=== PATIENT | male | born 1975 | race Caucasian/White ===

== ENCOUNTER 2018-08-23 18:35 | Inpatient (IN) | payer MEDICAID, OTHER ==
[~2018-08-23] VITALS: Ht 182.9 cm; Wt 87.5 kg
--- NOTE | 2018-08-23 18:40 | NUR ---
PT BIB ALS TO ER BED 2
[2018-08-23 18:47] VITALS: BP 117/85
[2018-08-23] MEDS ORDERED: ASPIRIN 325 MG TAB PO ONE (19:20)
[2018-08-23] MEDS ORDERED: LORazepam 1 MG TAB PO ONE (19:20)
[2018-08-23] MEDS ORDERED: NITROGLYCERIN 0.4 MG TAB SL ONE (19:20)
--- NOTE | 2018-08-23 19:29 | NUR ---
PT BIBA C/O SOB AND EXTREME FATIGUE. PT ATTEMPTED TO WALK TO HOSPITAL FOR BLE EDEMA AND PAIN, BUT BECAME FATIGUED AND SOB AND CALLED AMBULANCE. O2 SAT 100% ON 2L OXYGEN, NASAL CANNULA, RR EVEN, NON-LABORED, BREATH SOUDSS CLEAR. RECENT DIAGNOSES OF CHF. PT ALSO C/O OF RIGHT-SIDED PRESSURE HEADACHE RADIATES FROM RIGHT EYE TO RIGHT EAR; FREQUENCY AND URGENCY OF URIANATION. DENIES N/V/D; AAOX4; LUNGS CLEAR BL; HR EVEN AND REGULAR; PT DENIES ANY FEVER, CP, OR COUGH AT THIS TIME; PATIENT STATES HEADACHE OF 8/10 AT THIS TIME; VSS; PATIENT POSITIONED FOR COMFORT; HOB ELEVATED; BEDRAILS UP X2; BED DOWN. ER MD MADE AWARE OF PT STATUS. BROTHER IN LAW AT BEDSIDE. EDEMA +1 AND WARMNESS ON BOTH FEET NOTICED.
--- NOTE | 2018-08-23 19:29 | NUR ---
Note undone in EDM - 08/23/18 at 1931 by ESTELA PT BIBA C/O SOB AND EXTREME FATIGUE. PT ATTEMPTED TO WALK TO HOSPITAL FOR BLE EDEMA AND PAIN, BUT BECAME FATIGUED AND SOB AND CALLED AMBULANCE. O2 SAT 100% ON 2L OXYGEN, NASAL CANNULA, RR EVEN, NON-LABORED, BREATH SOUDSS CLEAR. RECENT DIAGNOSES OF CHF. PT ALSO C/O OF RIGHT-SIDED PRESSURE HEADACHE RADIATES FROM RIGHT EYE TO RIGHT EAR. DENIES N/V/D; AAOX4; LUNGS CLEAR BL; HR EVEN AND REGULAR; PT DENIES ANY FEVER, CP, OR COUGH AT THIS TIME; PATIENT STATES HEADACHE OF 8/10 AT THIS TIME; VSS; PATIENT POSITIONED FOR COMFORT; HOB ELEVATED; BEDRAILS UP X2; BED DOWN. ER MD MADE AWARE OF PT STATUS. BROTHER IN LAW AT BEDSIDE.
--- NOTE | 2018-08-23 19:29 | NUR ---
Note undone in EDM - 08/23/18 at 1956 by ESTELA PT BIBA C/O SOB AND EXTREME FATIGUE. PT ATTEMPTED TO WALK TO HOSPITAL FOR BLE EDEMA AND PAIN, BUT BECAME FATIGUED AND SOB AND CALLED AMBULANCE. O2 SAT 100% ON 2L OXYGEN, NASAL CANNULA, RR EVEN, NON-LABORED, BREATH SOUDSS CLEAR. RECENT DIAGNOSES OF CHF. PT ALSO C/O OF RIGHT-SIDED PRESSURE HEADACHE RADIATES FROM RIGHT EYE TO RIGHT EAR; FREQUENCY AND URGENCY OF URIANATION. DENIES N/V/D; AAOX4; LUNGS CLEAR BL; HR EVEN AND REGULAR; PT DENIES ANY FEVER, CP, OR COUGH AT THIS TIME; PATIENT STATES HEADACHE OF 8/10 AT THIS TIME; VSS; PATIENT POSITIONED FOR COMFORT; HOB ELEVATED; BEDRAILS UP X2; BED DOWN. ER MD MADE AWARE OF PT STATUS. BROTHER IN LAW AT BEDSIDE.
[2018-08-23 19:40] LABS: BASOPHILS # (AUTO) 0.1 K/uL (0.00-0.22); BASOPHILS % (AUTO) 1.4 % (0.0-2.0); EOSINOPHILS # (AUTO) 0.1 K/uL (0-0.4); EOSINOPHILS % (AUTO) 1.1 % (0.0-4.0); HEMATOCRIT 33.9 % (36-52); HEMOGLOBIN 10.5 g/dL (12.0-18.0); LYMPHOCYTES # (AUTO) 2.4 K/uL (2.0-11.5); LYMPHOCYTES % (AUTO) 25.5 % (20.5-51.1); MEAN CORPUSCULAR HEMOGLOBIN 22 pg (27-31); MEAN CORPUSCULAR HGB CONC 31 g/dL (33-37); MEAN CORPUSCULAR VOLUME 69.4 fL (80-94); MONOCYTES # (AUTO) 0.8 K/uL (0.8-1.0); NEUTROPHILS # (AUTO) 5.8 K/uL (1.8-7.7); PLATELET COUNT (AUTO) 261 K/uL (140-450); RED BLOOD CELL COUNT(AUTO) 4.89 MIL/uL (4.20-6.10); RED CELL DISTRIBUTION WIDTH 18.6 % (11.6-13.7); WHITE BLOOD COUNT (AUTO) 9.3 K/uL (4.8-10.8)
[2018-08-23 19:57] LABS: ANION GAP 16.2 (8-16); CARBON DIOXIDE 20.6 mmol/L (21-32); CREATININE 1.8 mg/dL (0.7-1.3); POTASSIUM 4.8 mmol/L (3.5-5.1); TOTAL BILIRUBIN 0.8 mg/dL (0.0-1.0)
--- NOTE | 2018-08-23 20:00 | NUR ---
EKG PERFORMED AT BEDSIDE
[2018-08-23] MEDS ORDERED: VAS2.5 PO (20:21)
[2018-08-23] MEDS ORDERED: METO25TA PO (20:21)
[2018-08-23 20:29] LABS: BARBITURATE, URINE NEG. ng/ml (NEG <=200); BENZODIAZEPINE, URINE NEG. ng/mL (NEG <=200); CANNABINOID, URINE NEG. ng/mL (NEG <=50); COCAINE, URINE NEG. ng/mL (NEG <=300); OPIATE, URINE NEG. ng/mL (NEG <=2000); PHENCYCLIDINE SCREEN,URINE NEG. ng/mL (NEG <=25)
[2018-08-23 20:36] LABS: CREATINE KINASE MB 0.8 ng/mL (0-3.6)
--- NOTE | 2018-08-23 21:30 | NUR ---
ASSUMED CARE OF PT, PT ACTING APPROPRIATLY; BREATHING EQUAL AND UNLABORED; SPEAKING IN CLEAR AND COMPLETE SENTENCES. POSITIONED FOR COMFORT.
[2018-08-23] MEDS ORDERED: ONDANSETRON 4 MG/2 ML VIAL IVP PRN (21:35)
[2018-08-23] MEDS ORDERED: HYDROcodone/APAP 7.5/325 MG 1 TAB PO PRN (21:35)
[2018-08-23 22:19] LABS: APPEARANCE,URINE CLEAR (CLEAR); BILIRUBIN,URINE NEGATIVE (NEGATIVE); BLOOD, URINE NEGATIVE (NEGATIVE); COLOR,URINE YELLOW (YELLOW); LEUKOCYTE ESTERASE ,URINE NEGATIVE (NEGATIVE); NITRITE, URINE NEGATIVE (NEGATIVE); PH,URINE 5.5 (5.0-9.0); UGLUCOSE NEGATIVE (NEGATIVE)
[2018-08-23 22:20] LABS: PROTHROMBIN TIME 11.4 secs (10.8-13.4)
--- NOTE | 2018-08-23 22:25 | NUR ---
Patient will be admitted to care of Dr. Rodas. Admited to Tele. Patient went to room 120-B via gurney by RN and EMT; VSS, patient acting appropriatly. Belongings list completed. Report to well.
[2018-08-23 22:30] VITALS: BP 122/84
--- NOTE | 2018-08-23 22:30 | NUR ---
RECEIVED PATIENT FROM ER NURSE, MANDI. PT CAME WITH JEFFREY AND AMBULATED TO [facility] BED. AAOX4, DX CHEST PAIN. NO S/S OF SOB ON 2LPM O2 VIA NC. IV SITE ON R AC 18G, DATE, TIME, AND INITIAL NOTED. PATENT, INTACT, AND ASYMPTOMATIC. STANDARD PRECAUTION IN PLACED. ORIENT ROOM TO PATIENT. POC REVIEWED AND DISCUSSED. BED IN LOW POSITION, CALL LIGHT WITHIN REACH.
[2018-08-23 22:35] LABS: FREE T4 (FREE THYROXINE) 1.26 ng/dL (0.76-1.46); MAGNESIUM 1.7 mg/dL (1.8-2.4); PHOSPHORUS 4.8 mg/dL (2.5-4.9); THYROID STIMULATING HORMONE 0.87 uIU/mL (0.34-3.74)
[2018-08-23] MEDS ORDERED: METOPROLOL 25 MG TAB PO ONE (23:05)
[2018-08-23] MEDS: ZOLPIDEM 5 MG TAB PO PRN (23:13)
--- NOTE | 2018-08-23 23:13 | NUR ---
GIVEN METOPROLOL DR. ORDERED. PT C/O INSOMNIA. GIVEN AMBIEN DR. ORDERED. PT TOLERATED WELL.
[2018-08-23] MEDS ORDERED: MAGNESIUM OXIDE 400 MG TAB PO ONE (23:15)
--- NOTE | 2018-08-23 23:30 | NUR ---
STOOL WAS COLLECTED FOR OCCULT BLOOD TEST AND SENT TO LAB.
[2018-08-24] VITALS: BP 118/88
--- NOTE | 2018-08-24 00:02 | NUR ---
GIVEN MAG-OX AND HEPARIN ORDERED. PT TOLERATED WELL. VS CHECK, WITHIN NORMAL RANGE. WILL CONTINUE TO MONITOR.
--- NOTE | 2018-08-24 02:25 | NUR ---
PT SLEEPING IN BED. BREATHING EVEN AND UNLABORED. BED IN LOW POSITION. CALL LIGHT WITHIN REACH.
--- NOTE | 2018-08-24 03:55 | NUR ---
VS CHECKED. WITHIN NORMAL RANGE. NO SOB NOTED. BREATHING EVEN AND UNLABORED. WILL CONTINUE TO MONITOR.
[2018-08-24 04:00] VITALS: BP 113/86
--- NOTE | 2018-08-24 05:48 | NUR ---
ROUND MADE, PT TOOK NC AND BREATHING LABORED. PUT NC ON PT BACK AND MONITOR O2 SAT AND RESP RATE AND DEPTH, PT RESP EVEN AND UNLABORED AND 100% O2 SATE WITH 2LPM O2 VIA NC. WILL CONTINUE TO MONITOR.
--- NOTE | 2018-08-24 07:29 | NUR ---
ENDORSED PT TO DAY SHIFT NURSEGORAN FOR CONTINUOUS CARE. PT IN STABLE CONDITION.
--- NOTE | 2018-08-24 07:30 | NUR ---
RECEIVED REPORT FROM PRESCHOOL PARAPROFESSIONAL NURSE SHAWN FOR CONTINUITY OF CARE. RESPIRATIONS EVEN AND UNLABORED. IV INTACT AND PATENT. SAFETY MEASURES IN PLACE. BED IN LOW POSITION. CALL LIGHT AT BEDSIDE. WILL CONTINUE TO MONITOR.
[2018-08-24 07:31] LABS: CREATININE 1.6 mg/dL (0.7-1.3)
[2018-08-24 07:45] LABS: CHOL/HDL RATIO 3.5 (1-4.5); MAGNESIUM 1.9 mg/dL (1.8-2.4); PHOSPHORUS 4.6 mg/dL (2.5-4.9); POTASSIUM 4.8 mmol/L (3.5-5.1)
[2018-08-24 07:46] LABS: ANION GAP 17.9 (8-16); CARBON DIOXIDE 17.9 mmol/L (21-32)
[2018-08-24 08:00] VITALS: BP 125/92
[2018-08-24] MEDS ORDERED: ENALAPRIL 2.5 MG TAB PO SCH (09:00)
--- NOTE | 2018-08-24 09:16 | NUR ---
PATIENT HAS BEEN SCREENED AND CATEGORIZED MODERATE NUTRITION RISK. PATIENT WILL BE SEEN WITHIN 3-5 DAYS OF ADMISSION. 08/26/18JANINE REMY RD
[2018-08-24] MEDS: METOPROLOL 25 MG TAB PO SCH ×2 (09:44→20:06)
[2018-08-24] MEDS: DOCUSATE SODIUM 100 MG GELCAP PO SCH ×2 (09:44→20:06)
[2018-08-24] MEDS: MAGNESIUM OXIDE 400 MG TAB PO SCH (09:45)
--- NOTE | 2018-08-24 09:52 | NUR ---
MELANI ALEMAN LOCAL GOVERNMENT LEGISLATOR AT BEDSIDE AT THIS TIME. PT IN STABLE CONDITION. WILL CONTINUE TO MONITOR.
[2018-08-24] MEDS: ECOTRIN 81 MG TABEC PO SCH (09:59)
[2018-08-24 10:40] LABS: BASOPHILS # (AUTO) 0.1 K/uL (0.00-0.22); BASOPHILS % (AUTO) 1.3 % (0.0-2.0); EOSINOPHILS # (AUTO) 0.1 K/uL (0-0.4); EOSINOPHILS % (AUTO) 0.6 % (0.0-4.0); HEMATOCRIT 35.9 % (36-52); HEMOGLOBIN 11.2 g/dL (12.0-18.0); LYMPHOCYTES # (AUTO) 2.7 K/uL (2.0-11.5); LYMPHOCYTES % (AUTO) 27.6 % (20.5-51.1); MEAN CORPUSCULAR HEMOGLOBIN 22 pg (27-31); MEAN CORPUSCULAR HGB CONC 31 g/dL (33-37); MEAN CORPUSCULAR VOLUME 69.2 fL (80-94); MONOCYTES # (AUTO) 0.8 K/uL (0.8-1.0); MONOCYTES % (AUTO) 8.2 % (1.7-9.3); NEUTROPHILS # (AUTO) 6.1 K/uL (1.8-7.7); NEUTROPHILS % (AUTO) 62.3 % (42.2-75.2); PLATELET COUNT (AUTO) 284 K/uL (140-450); RED BLOOD CELL COUNT(AUTO) 5.18 MIL/uL (4.20-6.10); RED CELL DISTRIBUTION WIDTH 18.2 % (11.6-13.7); WHITE BLOOD COUNT (AUTO) 9.9 K/uL (4.8-10.8)
[2018-08-24] MEDS ORDERED: FUROSEMIDE 20 MG/2 ML VIAL IVP SCH (11:20)
--- NOTE | 2018-08-24 11:30 | NUR ---
PT LYING I BED SLEEPING AT THIS TIME. RESPIRATIONS EVEN AND UNLABORED. CALL LIGHT AT BEDSIDE. BED IN LOW POSITION. WILL CONTINUE TO MONITOR.
[2018-08-24 12:00] VITALS: BP 122/87
[2018-08-24] MEDS: NACL 0.9% 1,000 ML IV SCH (12:37)
--- NOTE | 2018-08-24 13:52 | NUR ---
PT LYING IN BED SLEEP AT THIS TIME. RESPIRATIONS EVEN AND UNLABORED. CALL LIGHT AT BEDSIDE. BED IN LOW POSITION. WILL CONTINUE TO MONITOR.
[2018-08-24] MEDS ORDERED: MIDAZOLAM 2 MG/2 ML VIAL ONE (14:15)
[2018-08-24] MEDS ORDERED: fentaNYL 0.05 MG/ML VIAL ONE (14:15)
[2018-08-24] MEDS ORDERED: diphenhydrAMINE 50 MG/ML VIAL ONE (14:15)
[2018-08-24 16:00] VITALS: BP 118/84
--- NOTE | 2018-08-24 16:01 | NUR ---
WALKING AROUND UNIT IN STABLE CONDITION. WILL CONTINUE TO MONITOR.
--- NOTE | 2018-08-24 19:10 | NUR ---
GAVE REPORT TO COLLECT ON DELIVERY CLERK NURSE FOR CONTINUITY OF CARE. PT IN STABLE CONDITION.
--- NOTE | 2018-08-24 19:11 | NUR ---
RECEIVED PATIENT FROM DAY SHIFT NURSE. AAOX4, NO SOB NOTED ON 2LPM O2 VIA NC. IV SITE ON R AC 18G, PATENT, INTACT, AND ASYMPTOMATIC. STANDARD PRECAUTION IN PLACED. POC REVIEWED AND DISCUSSED. BED IN LOW POSITION, CALL LIGHT WITHIN REACH. WILL CONTINUE TO MONITOR.
[2018-08-24 20:00] VITALS: BP 113/82
--- NOTE | 2018-08-24 20:06 | NUR ---
GIVEN SCHEDULE MEDS ORDERED. PT TOLERATED WELL. WILL CONTINUE TO MONITOR.
--- NOTE | 2018-08-24 20:25 | NUR ---
PT C/O SOB. REPORT TO RESIDENT BREATHING TREATMENT ORDER RECEIVED. INFORM RT.
[2018-08-24] MEDS: ALBUTEROL SULFATE/IPRATROPIU 3 ML SOL IH PRN (20:38)
[2018-08-24] MEDS: ACETAMINOPHEN 325 MG TAB PO PRN (20:49)
--- NOTE | 2018-08-24 20:49 | NUR ---
PT C/O INSOMNIA AND HEADACHE, 05/23. GIVEN AMBIEN AND TYLENOL ORDERED. PT TOLERATED WELL. WILL CONTINUE TO MONITOR.
[2018-08-24] MEDS: ZOLPIDEM 5 MG TAB PO PRN (20:50)
[2018-08-25] VITALS: BP 110/80
--- NOTE | 2018-08-25 00:25 | NUR ---
PT SLEEPING IN BED COMFORTABLY. NO ACUTE DISTRESS NOTED. BED IN LOW POSITION. CALL LIGHT WITHIN REACH.
--- NOTE | 2018-08-25 02:05 | NUR ---
PT SLEEPING IN BED. NO S/S OF SOB OR RESP DISTRESS. WILL CONTINUE TO MONITOR.
[2018-08-25 04:00] VITALS: BP 127/96
--- NOTE | 2018-08-25 04:15 | NUR ---
PT C/O SOB. INFORM RT TO GET BREATHING TREATMENT.
[2018-08-25] MEDS: ALBUTEROL SULFATE/IPRATROPIU 3 ML SOL IH PRN ×3 (04:21→20:50)
--- NOTE | 2018-08-25 07:01 | NUR ---
ENDORSED PT TO DAY SHIFT NURSE. PT IN STABLE CONDITION.
--- NOTE | 2018-08-25 07:22 | NUR ---
RECEIVED PATIENT FROM WATCH ASSEMBLER NURSE SHAWN AT PT BEDSIDE. PT IS AAOX4, NO SOB NOTED ON 2LPM O2 VIA NC. IV SITE ON R AC 18G, PATENT, INTACT, AND ASYMPTOMATIC. STANDARD PRECAUTION IN PLACED. SKIN IS WARM AND DRY TO TOUCH. SKIN INTACT. +1 PITTING EDEMA NOTED ON BLE. DISCUSSED POC WITH PT AND PT VERBALIZED UNDERSTANDING. BED IN LOW POSITION, CALL LIGHT WITHIN REACH. WILL ROUND FREQUENTLY ON PT.
[2018-08-25 07:57] LABS: BASOPHILS # (AUTO) 0.1 K/uL (0.00-0.22); BASOPHILS % (AUTO) 1.3 % (0.0-2.0); EOSINOPHILS # (AUTO) 0.1 K/uL (0-0.4); EOSINOPHILS % (AUTO) 0.9 % (0.0-4.0); HEMATOCRIT 34.9 % (36-52); LYMPHOCYTES # (AUTO) 2.6 K/uL (2.0-11.5); LYMPHOCYTES % (AUTO) 26.9 % (20.5-51.1); MEAN CORPUSCULAR HEMOGLOBIN 22 pg (27-31); MEAN CORPUSCULAR HGB CONC 32 g/dL (33-37); MEAN CORPUSCULAR VOLUME 68.6 fL (80-94); MONOCYTES # (AUTO) 0.8 K/uL (0.8-1.0); MONOCYTES % (AUTO) 7.9 % (1.7-9.3); NEUTROPHILS # (AUTO) 6.1 K/uL (1.8-7.7); PLATELET COUNT (AUTO) 251 K/uL (140-450); RED BLOOD CELL COUNT(AUTO) 5.08 MIL/uL (4.20-6.10); RED CELL DISTRIBUTION WIDTH 17.7 % (11.6-13.7); WHITE BLOOD COUNT (AUTO) 9.7 K/uL (4.8-10.8)
[2018-08-25 08:00] VITALS: BP 122/99
[2018-08-25 08:47] LABS: ANION GAP 17.7 (8-16); CARBON DIOXIDE 19.6 mmol/L (21-32); CREATININE 1.5 mg/dL (0.7-1.3); POTASSIUM 4.3 mmol/L (3.5-5.1)
[2018-08-25 08:58] LABS: MAGNESIUM 1.9 mg/dL (1.8-2.4)
[2018-08-25] MEDS ORDERED: FUROSEMIDE 20 MG/2 ML VIAL IVP SCH (09:00)
[2018-08-25 09:14] LABS: TRANSFERRIN 326 mg/dL (200-370)
--- NOTE | 2018-08-25 09:46 | NUR ---
ADMINISTERED MORNING MEDS TO PT. PT TOLERATED THEM WELL. PT DENIES PAIN OR SOB AT THIS TIME. WILL CONTINUE TO ROUND FREQUENTLY ON PT.
[2018-08-25] MEDS: DOCUSATE SODIUM 100 MG GELCAP PO SCH ×2 (09:54→21:00)
[2018-08-25] MEDS: ECOTRIN 81 MG TABEC PO SCH (09:54)
[2018-08-25] MEDS: LISINOPRIL 5 MG TAB PO SCH (09:54)
[2018-08-25] MEDS: METOPROLOL 25 MG TAB PO SCH ×2 (09:55→21:01)
[2018-08-25] MEDS: MAGNESIUM OXIDE 400 MG TAB PO SCH (09:55)
[2018-08-25] MEDS: NACL 0.9% 1,000 ML IV SCH (11:20)
[2018-08-25] MEDS ORDERED: ESCITALOPRAM 20 MG TAB PO SCH (11:30)
--- NOTE | 2018-08-25 11:36 | NUR ---
PT RESTING IN BED WITH SISTER AND [id number] AT BEDSIDE. PER PT, FAMILY IS ALLOWED TO CALL FOR PT UPDATES. SISTER IS CORY GOMES: AND BROTHER IN LAW(SISTER'S SPOUSE) IS JOSEPH MERLENE: .
--- NOTE | 2018-08-25 11:37 | NUR ---
SPOKE WITH PT LAILA LI. ASKED HIM FOR INFORMATION TO PT[facility]S [facility]. PER JEN, HE WILL GET ME THE INFORMATION AND WILL CALL ME BACK. Addendum: 08/25/18 at 1542 by Kenia Encinas RN WRONG PT
[2018-08-25 12:00] VITALS: BP 137/88
--- NOTE | 2018-08-25 13:24 | NUR ---
PT RESTING IN BED. ALL NEEDS CURRENTLY MET. WILL CONTINUE TO ROUND FREQUENTLY ON PT. BED IN LOW POSITION, CALL LIGHT WITHIN REACH.
--- NOTE | 2018-08-25 15:54 | NUR ---
PT ASLEEP IN BED. NO SIGNS OF PAIN OR DISTRESS. WILL CONTINUE TO ROUND FREQUENTLY ON PT. BED IN LOW POSITION, CALL LIGHT WITHIN REACH.
[2018-08-25 16:00] VITALS: BP 118/86
--- NOTE | 2018-08-25 18:07 | NUR ---
PT ASLEEP IN BED. NO SIGNS OF PAIN OR DISTRESS, WILL CONTINUE TO ROUND FREQUENTLY. BED IN LOW POSITION, CALL LIGHT WITHIN REACH.
--- NOTE | 2018-08-25 19:34 | NUR ---
ENDORSED PT TO HORSEBACK RIDING INSTRUCTOR FOR CONTINUITY OF CARE. PT IN STABLE CONDITION AT THIS TIME.
--- NOTE | 2018-08-25 19:35 | NUR ---
RECEIVED PATIENT FROM AM SHIFT NURSE. PT IS AAOX4, NO RESPIRATORY DISTRESS NOTED.W/ IV SITE ON R HAND G 22 PATENT, INTACT, AND ASYMPTOMATIC . SKIN IS WARM AND DRY TO TOUCH. SKIN INTACT. +1 PITTING EDEMA NOTED ON BLE. DISCUSSED POC . BED IN LOW POSITION, CALL LIGHT WITHIN REACH. WILL ROUND FREQUENTLY ON PT.
[2018-08-25 20:00] VITALS: BP 111/74
--- NOTE | 2018-08-25 20:40 | NUR ---
C/O SOB INFORMED RT. PT BREATHING EVEN, AND NOT IN DISTRESS, O2 SAT 95%
--- NOTE | 2018-08-25 20:59 | NUR ---
RECEIVED PATIENT ON ROOM AIR, PULSE OX SAT 96%. PATIENT COMPLAINS OF FEELING SHORT OF BREATH, REQUESTING BREATHING TREATMENT. PRN BREATHING TREATMENT ADMINISTERED. TOLERATED TX WELL, NO ADVERSE SIDE EFFECTS. NO ACUTE DISTRESS NOTED AT THIS TIME. PATIENT STATES "TO BE FEELING BETTER". WILL CONTINUE TO MONITOR.
[2018-08-25] MEDS: FUROSEMIDE 40 MG/4 ML VIAL IVP SCH (21:00)
[2018-08-25] MEDS: ZOLPIDEM 5 MG TAB PO PRN (21:05)
[2018-08-25] MEDS: ACETAMINOPHEN 325 MG TAB PO PRN (21:05)
--- NOTE | 2018-08-25 21:05 | NUR ---
C/O HEADACHE 05/23, ADMINISTERED TYLENOL PRN ORDERED
[2018-08-26] VITALS: BP 113/78
--- NOTE | 2018-08-26 01:00 | NUR ---
PT'S LEAD CAME OFF,PLACED AND FIXED THE LEADS PT HAS HAIRY CHEST. CNC APPLICATIONS ENGINEER AGREED TO PUT IT IN LEAD 3 INSTEAD OF LEAD 2. BUT W/ INACCURATE READING. WILL CONTINUE TO MONITOR
--- NOTE | 2018-08-26 04:20 | NUR ---
SLEEPING AT THIS TIME COMFORTABLY, NO COMPLAINTS AT THIS TIME. WILL CONTINUE TO MONITOR
[2018-08-26 06:00] VITALS: BP 110/79
[2018-08-26 07:09] LABS: BASOPHILS # (AUTO) 0.1 K/uL (0.00-0.22); EOSINOPHILS # (AUTO) 0.1 K/uL (0-0.4); EOSINOPHILS % (AUTO) 1.6 % (0.0-4.0); HEMATOCRIT 35.2 % (36-52); LYMPHOCYTES # (AUTO) 2.2 K/uL (2.0-11.5); LYMPHOCYTES % (AUTO) 24.1 % (20.5-51.1); MEAN CORPUSCULAR HEMOGLOBIN 22 pg (27-31); MEAN CORPUSCULAR HGB CONC 31 g/dL (33-37); MEAN CORPUSCULAR VOLUME 68.4 fL (80-94); MONOCYTES # (AUTO) 0.7 K/uL (0.8-1.0); MONOCYTES % (AUTO) 7.8 % (1.7-9.3); NEUTROPHILS # (AUTO) 5.9 K/uL (1.8-7.7); NEUTROPHILS % (AUTO) 65.5 % (42.2-75.2); PLATELET COUNT (AUTO) 268 K/uL (140-450); RED BLOOD CELL COUNT(AUTO) 5.15 MIL/uL (4.20-6.10); RED CELL DISTRIBUTION WIDTH 18.1 % (11.6-13.7)
[2018-08-26 07:20] LABS: CREATININE 1.7 mg/dL (0.7-1.3)
[2018-08-26 07:22] LABS: MAGNESIUM 1.8 mg/dL (1.8-2.4); PHOSPHORUS 4.7 mg/dL (2.5-4.9)
--- NOTE | 2018-08-26 07:28 | NUR ---
ENDORSED TO NEXT SHIFT FOR CONTINUITY OF CARE. PT STABLE AT THIS TIME
--- NOTE | 2018-08-26 07:30 | NUR ---
RECEIVED PT FROM DRY COLOR MIXER NURSE, PT IS AWAKE AND SEATED ON THE BED, HAS AN IV LINE ON THE RT AC G. 22 WITH NS AT 20ML/HR, INFUSING. NO SIGN OF DISTRESS NOTED AND WILL MONITOR PT.
[2018-08-26 07:50] LABS: POTASSIUM 4.2 mmol/L (3.5-5.1)
[2018-08-26 07:52] LABS: ANION GAP 17.5 (8-16); CARBON DIOXIDE 20.7 mmol/L (21-32)
[2018-08-26 08:00] VITALS: BP 143/87
--- NOTE | 2018-08-26 08:00 | NUR ---
PT IS AWAKE AND VITAL SIGNS CHECKED AND IS WITHIN NORMAL LIMIT. WILL MONITOR PT.
--- NOTE | 2018-08-26 08:48 | NUR ---
SW followed up with patient to see how family meeting went. Patient stated that they did not go well. Patient stated he is coordinating his plans though the resources provided 08/25/2018. SW offered patient additional resources. Patient declined and stated that he will make arrangements today. SW/CM will follow up as needed.
[2018-08-26] MEDS: LISINOPRIL 5 MG TAB PO SCH (08:50)
[2018-08-26] MEDS: FUROSEMIDE 40 MG/4 ML VIAL IVP SCH (08:50)
[2018-08-26] MEDS: DOCUSATE SODIUM 100 MG GELCAP PO SCH ×2 (08:51→20:33)
[2018-08-26] MEDS: METOPROLOL 25 MG TAB PO SCH ×2 (08:52→20:34)
[2018-08-26] MEDS: ECOTRIN 81 MG TABEC PO SCH (08:53)
[2018-08-26] MEDS: MAGNESIUM OXIDE 400 MG TAB PO SCH (08:54)
--- NOTE | 2018-08-26 08:59 | NUR ---
PT IS AWAKE AND SEATED ON THE BED, PARAMETER CHECKED AND MEDICATIONS WERE GIVEN ORALLY, IV PUSH AND SUBQ ON THE ABDOMEN AND PT TOLERATED IT. WILL MONITOR PT.
[2018-08-26] MEDS ORDERED: ESCITALOPRAM 20 MG TAB PO SCH (09:00)
[2018-08-26] MEDS: NACL 0.9% 1,000 ML IV SCH (11:20)
[2018-08-26 12:00] VITALS: BP 118/65
[2018-08-26 16:00] VITALS: BP 103/76
--- NOTE | 2018-08-26 16:30 | NUR ---
PT IS AWAKE AND SEATED ON THE BED,VITAL SUGNS TAKEN AND IS WITHIN NORMAL LIMIT, NO SIGN OF DISTRESS NOTED AND WILL MONITOR PT.
--- NOTE | 2018-08-26 17:30 | NUR ---
PT WAS TOOK MA SHOWER TODAY.
--- NOTE | 2018-08-26 19:20 | NUR ---
ENDORSED PT TO BLOWER INSULATOR NURSE.
--- NOTE | 2018-08-26 19:21 | NUR ---
RECEIVED PT FROM AM SHIFT NURSE, PT IS AWAKE, O X 4, AMBULATORY, HAS AN IV LINE ON THE RT AC G. 22 WITH NS AT 20ML/HR, INFUSING. NO SIGN OF DISTRESS NOTED AND WILL MONITOR PT.
[2018-08-26 20:00] VITALS: BP 112/80
[2018-08-26] MEDS: NEOMYCIN/POLYMYXIN/BACITRACIN OIN 15 GM TUBE TP SCH (20:36)
--- NOTE | 2018-08-26 20:40 | NUR ---
MEASUREMENT PSYCHOLOGIST PATRICIA TALKED TO PT AT BEDSIDE.
--- NOTE | 2018-08-26 20:41 | NUR ---
W/ VISITORS, PATIENT SATURATING WELL AT 98%, NO SOB.PATIENT IN JOLLY MOOD TODAY WITH VISITORS AROUND
[2018-08-26] MEDS: ZOLPIDEM 5 MG TAB PO PRN (21:00)
[2018-08-26] MEDS: ALBUTEROL SULFATE/IPRATROPIU 3 ML SOL IH PRN (23:16)
[2018-08-27] VITALS: BP 115/80
[2018-08-27 04:00] VITALS: BP 117/95
--- NOTE | 2018-08-27 04:55 | NUR ---
WILL ENDORSE TO NEXT SHIFT IVF CONCERN OF PATIENT. EXPLAINED THE RISKS AND BENEFITS OF IVF INSERTION. BUT PT STILL REQUESTED TO HOLD IT FOR NOW. WILL ENDORSE TO NEXT SHIFT TO FOLLOW UP. Addendum: 08/27/18 at 0703 by Lily Bhatia RN AMEND TIME TO 0555
--- NOTE | 2018-08-27 05:33 | NUR ---
PAT'S IVF DISLODGED ACCIDENTALLY BY PT. PT REQUESTED NOT TO REINSERT UNTIL HE CAN BE SURE HE WILL BE DISCHARGED TODAY. PUT IT OFF FOR A WHILE AND INSERT IT AGAIN IF NEEDED. PT IS DRINKING AND AMBULATORY AND HIS PREVIOUS IV ORDER IS NS AT TKO.
[2018-08-27 06:11] LABS: ANION GAP 13.5 (8-16); CARBON DIOXIDE 24.3 mmol/L (21-32); CREATININE 1.7 mg/dL (0.7-1.3); POTASSIUM 4.8 mmol/L (3.5-5.1)
[2018-08-27 06:20] LABS: BASOPHILS # (AUTO) 0.1 K/uL (0.00-0.22); EOSINOPHILS # (AUTO) 0.1 K/uL (0-0.4); EOSINOPHILS % (AUTO) 1.6 % (0.0-4.0); HEMATOCRIT 34.4 % (36-52); HEMOGLOBIN 10.7 g/dL (12.0-18.0); LYMPHOCYTES # (AUTO) 2.4 K/uL (2.0-11.5); LYMPHOCYTES % (AUTO) 27.8 % (20.5-51.1); MEAN CORPUSCULAR HEMOGLOBIN 21 pg (27-31); MEAN CORPUSCULAR HGB CONC 31 g/dL (33-37); MEAN CORPUSCULAR VOLUME 68.9 fL (80-94); MONOCYTES # (AUTO) 0.7 K/uL (0.8-1.0); MONOCYTES % (AUTO) 8.4 % (1.7-9.3); NEUTROPHILS # (AUTO) 5.4 K/uL (1.8-7.7); NEUTROPHILS % (AUTO) 61.2 % (42.2-75.2); PLATELET COUNT (AUTO) 259 K/uL (140-450); WHITE BLOOD COUNT (AUTO) 8.7 K/uL (4.8-10.8)
[2018-08-27 06:23] LABS: MAGNESIUM 1.9 mg/dL (1.8-2.4); PHOSPHORUS 4.9 mg/dL (2.5-4.9)
--- NOTE | 2018-08-27 07:03 | NUR ---
ENDORSED TO NEXT SHIFT FOR CONTINUITY OF CARE. PT IN STABLE CONDITION.
--- NOTE | 2018-08-27 07:20 | NUR ---
RECEIVED REPORT FROM SERVER ADMINISTRATOR NURSE. PT LYING COMFORTABLY IN BED. AROUSABLE TO NAME, AOX4. LUNG SOUNDS CLEAR THROUGHOUT UPON AUSCULTATION. STOMACH FLAT, SOFT AND NON-DISTENDED. NO IV IN PLACE. NO C/O PAIN AT THIS TIME. NO EDEMA NOTED ON UPPER AND LOWER EXTREMITIES. SKIN COLOR IS APPROPRIATE TO ETHNICITY, WARM TO TOUCH. SKIN IS INTACT, CLEAN AND DRY. DISCUSSED PLAN OF CARE WITH PT. PT VERBALIZED UNDERSTANDING. SAFETY MEASURES IN PLACE, BED ON LOW POSITION. CALL LIGHT WITHIN REACH.
[2018-08-27 08:00] VITALS: BP 119/80
[2018-08-27] MEDS: NACL 0.9% 1,000 ML IV SCH (08:53)
[2018-08-27] MEDS ORDERED: FUROSEMIDE 20 MG/2 ML VIAL IVP SCH (09:00)
[2018-08-27] MEDS ORDERED: ARIPiprazole 10 MG TAB PO SCH (09:00)
--- NOTE | 2018-08-27 09:03 | NUR ---
DR. WILCOX NOTIFIED THAT PT HAS NO IV ACCESS. PHYSICIAN STATES IV MED WILL BE CHANGED TO PO, AND PT WILL BE DISCHARGED TODAY.
[2018-08-27] MEDS ORDERED: FUROSEMIDE 40 MG TAB PO SCH (09:15)
[2018-08-27] MEDS: LISINOPRIL 5 MG TAB PO SCH (09:18)
[2018-08-27] MEDS: MAGNESIUM OXIDE 400 MG TAB PO SCH (09:18)
[2018-08-27] MEDS: DOCUSATE SODIUM 100 MG GELCAP PO SCH (09:18)
[2018-08-27] MEDS: ECOTRIN 81 MG TABEC PO SCH (09:18)
[2018-08-27] MEDS: METOPROLOL 25 MG TAB PO SCH (09:18)
[2018-08-27] MEDS: NEOMYCIN/POLYMYXIN/BACITRACIN OIN 15 GM TUBE TP SCH (09:20)
[2018-08-27] MEDS ORDERED: METO50TE2 PO (09:26)
[2018-08-27] MEDS ORDERED: FURO-570 PO (09:26)
[2018-08-27] MEDS ORDERED: LISI10TA11 PO (09:26)
[2018-08-27] MEDS ORDERED: ARIP5TAB8 PO (09:26)
[2018-08-27] MEDS ORDERED: POTA8TER12 PO (09:26)
--- NOTE | 2018-08-27 09:40 | NUR ---
Pt has been provided by foster care social worker with packets for homeless, substance abuse, & mental health resources. Pt verbalizes to nurse that he is unable to find a senior care/correction to go to after discharge. Encouraged pt to reach out to family, but pt refused & states he'd rather not call them. Pt verbalized that he accepts that he is being discharged today & will continue to look for places to go.
[2018-08-27] MEDS: ALBUTEROL SULFATE/IPRATROPIU 3 ML SOL IH PRN (09:45)
--- NOTE | 2018-08-27 09:45 | NUR ---
SW met with patient and provided sober living resources. SW/CM will follow up as needed.
[2018-08-27] MEDS ORDERED: ASPI-1718 PO (09:48)
--- NOTE | 2018-08-27 10:15 | NUR ---
Pt requested to have shower. Pt NSR, tele monitor removed. Pt assisted to shower room, toiletries provided. Pt able to amb with steady gait, no signs of distress. Instructed pt on how to use emergency call button/string, verbalized understanding.
--- NOTE | 2018-08-27 10:45 | NUR ---
Pt back in room after shower. No signs of distress. States he feels much better.
--- NOTE | 2018-08-27 12:00 | NUR ---
WRITTEN AND VERBAL DISCHARGE INSTRUCTIONS GIVEN TO PT. PT VERBALIZED UNDERSTANDING. PER PT HE WILL NOT BE GOING TO A HOMELESS RETIREMENT. WILL CONTINUE TO BE HOMELESS PER PREFERENCE. REQUESTED FOR 2 BUS PASSES.
--- NOTE | 2018-08-27 13:05 | NUR ---
PT DISCHARGED, ACCOMPANIED VIA W/C TO FRONT LOBBY. PERSONAL BELONGINGS ARE WITH PT. PACKED DINNER AND BUS PASSES PROVIDED. ARM BAND REMOVED. PT IS STABLE AT THIS TIME.
[2018-08-29 07:44] LABS: FERRITIN 23 ng/mL (30-400)
== END 2018-08-27 13:05 | disposition home or self-care (01) | DRG 194 ==
LOC: MED 18:35 → MTU 21:32
PROVIDERS: ADMIT General Practice; ATTEND General Practice
DX: I50.43 Acute on chronic combined systolic (congestive) and diastolic (congestive) heart failure (principal); N17.0 Acute kidney failure with tubular necrosis; E44.0 Moderate protein-calorie malnutrition; E83.42 Hypomagnesemia; F22 Delusional disorders; I08.1 Rheumatic disorders of both mitral and tricuspid valves; D50.9 Iron deficiency anemia, unspecified; F15.10 Other stimulant abuse, uncomplicated; F17.210 Nicotine dependence, cigarettes, uncomplicated; Z68.26 Body mass index [BMI] 26.0-26.9, adult; Z59.0 Homelessness; Z79.899 Other long term (current) drug therapy; Z71.3 Dietary counseling and surveillance; Z71.6 Tobacco abuse counseling; Z71.51 Drug abuse counseling and surveillance of drug abuser
CPT/HCPCS: 36415; 71045; 76700; 80048; 80053; 80305; 81003; 82150; 82272; 82550; 82553; 82728; 83036; 83540; 83690; 83735; 83880; 84100; 84439; 84443; 84484; 85025; 85045; 85610; 85730; 87081; 93005; 93970; 94640; 99285; J1200; J1644; J1940; J2250; J3010; J7030; J7620; Q0092

== ENCOUNTER 2019-11-24 01:00 | Emergency (ER) | payer MEDICAID ==
[~2019-11-24] VITALS: Ht 182.9 cm; Wt 89.4 kg
[~2019-11-24 01:00] MED LIST: ARIP5TAB8 PO; ASPI-1822 PO; FURO-570 PO; LISI10TA11 PO; METO50TE2 PO; POTA8TER12 PO
[2019-11-24 01:07] VITALS: BP 115/93
--- NOTE | 2019-11-24 01:10 | NUR ---
43 YO M BIB SELF FOR C/C OF 12/23 BLE PAIN AND SWELLING X3 DAYS. BLE 4+ NON PITTING EDEMA. PT STATES HE FEELS SOB WITH PHYSICAL EXERTION. S1S2 HEARD. LUNG SOUNDS CLEAR THROUGHOUT. PT STATES HE SMOKED METH AND MARIJUANA X2 HOURS AGO. DENIES ALCOHOL USE TODAY. PT STATES HE HAS BEEN TAKING HIS LASIX "RELIGIOUSLY." PT PRESENTS RESTLESS AND UNABLE TO REMAIN STILL. PT PLACED ON SIDE LASTER/PULSE OX. BED LOCKED AND IN LOWEST POSITION. SIDE RAILS X2. NKA MED HX: COPD, CHF RX:40 MG LASIX
--- NOTE | 2019-11-24 01:12 | NUR ---
w/c assist to bed 09
[2019-11-24] MEDS ORDERED: FUROSEMIDE 100 MG/10 ML VIAL IVP ONE (01:25)
[2019-11-24] MEDS ORDERED: ALBUTEROL SULFATE/IPRATROPIU 3 ML SOL IH ONE (01:25)
--- NOTE | 2019-11-24 01:35 | NUR ---
LAB AT BEDSIDE
[2019-11-24 01:44] LABS: HEMOGLOBIN 11.3 g/dL (12.0-18.0)
--- NOTE | 2019-11-24 01:50 | NUR ---
EKG PERFORMED AT BEDSIDE. SINUS RHYTHM @ 99
[2019-11-24 01:51] LABS: HEMATOCRIT 36.4 % (36-52); MEAN CORPUSCULAR HEMOGLOBIN 21 pg (27-31); MEAN CORPUSCULAR HGB CONC 31 g/dL (33-37); MEAN CORPUSCULAR VOLUME 68.8 fL (80-94); PLATELET COUNT (AUTO) 283 K/uL (140-450); RED BLOOD CELL COUNT(AUTO) 5.28 MIL/uL (4.20-6.10); RED CELL DISTRIBUTION WIDTH 24.7 % (11.6-13.7); WHITE BLOOD COUNT (AUTO) 8.3 K/uL (4.8-10.8)
--- NOTE | 2019-11-24 01:52 | NUR ---
RT AT BEDSIDE
--- NOTE | 2019-11-24 01:52 | NUR ---
EMT PERFORMING EKG AT BEDSIDE
[2019-11-24 01:59] LABS: ANION GAP 13.6 (8-16); CREATININE 2.3 mg/dL (0.6-1.3); POTASSIUM 3.6 mmol/L (3.5-5.1); TOTAL BILIRUBIN 1.5 mg/dL (0.0-1.0)
--- NOTE | 2019-11-24 02:06 | NUR ---
PT PROVIDED WITH URINAL TO PROVIDE UA
[2019-11-24] MEDS ORDERED: SERT100T PO (02:17)
[2019-11-24] MEDS ORDERED: PANT40EC PO (02:18)
[2019-11-24] MEDS ORDERED: [UNRECOGNIZED DRUG - CODE] PO (02:19)
--- NOTE | 2019-11-24 02:25 | NUR ---
PT TAKEN TO RAD VIA WHEELCHAIR
--- NOTE | 2019-11-24 02:31 | NUR ---
PT RETURNED FROM RAD VIA WHEELCHAIR AND PLACED BACK ON PHLEBOTOMY SUPERVISOR. ,
--- NOTE | 2019-11-24 02:40 | NUR ---
UTE SWAB COLLECTED AND SENT TO LAB
[2019-11-24 02:44] LABS: BASOPHILS % (MANUAL) 0 % (0-2); EOSINOPHILS % (MANUAL) 0 % (0-4); LYMPHOCYTES % (MANUAL) 34 % (20-46); MONOCYTES % (MANUAL) 6 % (5-12)
[2019-11-24 03:10] LABS: BARBITURATE, URINE NEGATIVE ng/ml (NEG <=200); BENZODIAZEPINE, URINE NEGATIVE ng/mL (NEG <=200); CANNABINOID, URINE POSITIVE ng/mL (NEG <=50); COCAINE, URINE NEGATIVE ng/mL (NEG <=300); OPIATE, URINE NEGATIVE ng/mL (NEG <=2000); PHENCYCLIDINE SCREEN,URINE NEGATIVE ng/mL (NEG <=25)
--- NOTE | 2019-11-24 04:00 | NUR ---
PT ASLEEP IN BED. RESPIRATIONS EVEN AND UNLABORED, EQUAL CHEST RISE AND FALL. BIOGEOGRAPHER/PULSE OX IN PLACE. BED LOCKED AND IN LOWEST POSITION. ALL PT NEEDS AT THIS TIME.
--- NOTE | 2019-11-24 06:00 | NUR ---
OBTAINED PT CONSENT TO TRANSFER PT TO [facility].
--- NOTE | 2019-11-24 06:15 | NUR ---
REPORT GIVEN TO ENOCH WEATHERS AT [facility] FOR TRANSFER OF CARE. PT WILL GO TO ROOM 369A TELEMETRY.
--- NOTE | 2019-11-24 06:15 | NUR ---
[facility] 3 STATION
--- NOTE | 2019-11-24 06:15 | NUR ---
Kelsea brown in [facility] - 11/24/19 at 0617 by [email or web address] REPORT GIVEN TO ENOCH WEATHERS AT [facility] FOR TRANSFER OF CARE.
--- NOTE | 2019-11-24 06:21 | NUR ---
PT RESTING IN BED. EQUAL CHEST RISE AND FALL, RR EVEN AND UNLABORED. BED LOCKED AND IN LOWEST POSITION. PET CREMATORY WORKER IN PLACE.
--- NOTE | 2019-11-24 06:55 | NUR ---
Kelsea brown in [facility] - 11/24/19 at 0656 by [email or web address] PT RETURNED FROM CT VIA JEFFREY. PLACED ON OTHER SPORTS COACH OR INSTRUCTOR.
--- NOTE | 2019-11-24 07:14 | NUR ---
REPORT RECEIVED FROM ENOCH ZAMORA.
--- NOTE | 2019-11-24 07:14 | NUR ---
REPORT GIVEN TO ENOCH LEZAMA. TRANSFER OF CARE AT THIS TIME.
[2019-11-24 07:40] VITALS: BP 121/89
--- NOTE | 2019-11-24 07:40 | NUR ---
[facility] IS TRANSFERRING PT AT BEDSIDE.
== END 2019-11-24 07:40 | disposition short-term general hospital (02) ==
LOC: MED 01:00
DX: I50.9 Heart failure, unspecified (principal); F17.210 Nicotine dependence, cigarettes, uncomplicated; F15.10 Other stimulant abuse, uncomplicated; Z79.899 Other long term (current) drug therapy; Z79.82 Long term (current) use of aspirin
CPT/HCPCS: 36415; 71046; 80053; 80305; 81002; 83880; 84484; 85025; 87426; 93005; 94640; 96374; 99285; G0482; J1940; Q0092

== ENCOUNTER 2019-12-25 22:52 | Emergency (ER) | payer MEDICAID ==
[~2019-12-25] VITALS: Ht 182.9 cm; Wt 88.5 kg
[~2019-12-25 22:52] MED LIST changes: -ARIP5TAB8 PO; -METO50TE2 PO; +PANT40EC PO; -POTA8TER12 PO; +SERT100T PO; +[UNRECOGNIZED DRUG - CODE] PO
[2019-12-25 22:55] VITALS: BP 117/96
[2019-12-25] MEDS ORDERED: ACETAMINOPHEN 325 MG TAB PO ONE (23:10)
[2019-12-25] MEDS ORDERED: KETOROLAC 30 MG/ML VIAL IM ONE (23:10)
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
--- NOTE | 2019-12-25 23:35 | NUR ---
TO RADIOLOGY VIA W/C
--- NOTE | 2019-12-25 23:43 | NUR ---
RETURNED FROM RADIOLOGY VIA W/C, ATTACHED TO CM = STWITHOUT ECTOPY. LUNGS ARE CLEAR, RESPIRATIONS ARE SLIGHTLY SHALLOW AND GUARDED.
[2019-12-26] MEDS ORDERED: MORPHINE SULFATE 4 MG/ML SYR IM ONE (00:10)
--- NOTE | 2019-12-26 01:00 | NUR ---
PT SLEEPING COMFORTABLY. EQUAL CHEST RISE AND FALL. NO DISTRESS NOTED.
--- NOTE | 2019-12-26 03:45 | NUR ---
Patient discharged with v/s stable. Written and verbal after care instructions given and explained. Patient alert, oriented and verbalized understanding of instructions. Ambulatory with steady gait. All questions addressed prior to discharge. ID band removed. Patient advised to follow up with PMD. Rx of naprosyn & Lidocaine patch given. Patient educated on indication of medication including possible reaction and side effects. Opportunity to ask questions provided and answered.
[2019-12-26 03:46] VITALS: BP 124/97
== END 2019-12-26 03:45 | disposition home or self-care (01) ==
LOC: MED 22:52
DX: S20.212A Contusion of left front wall of thorax, initial encounter (principal); I51.9 Heart disease, unspecified; J44.9 Chronic obstructive pulmonary disease, unspecified; Z79.899 Other long term (current) drug therapy; Z79.82 Long term (current) use of aspirin; V89.9XXA Person injured in unspecified vehicle accident, initial encounter; Y93.89 Activity, other specified; Y92.89 Other specified places as the place of occurrence of the external cause; Y99.8 Other external cause status
CPT/HCPCS: 71101; 93005; 96372; 99284; J1885; J2270

== ENCOUNTER 2020-09-01 18:43 | Inpatient (IN) | payer MEDICAID, SELFPAY ==
[~2020-09-01] VITALS: Ht 182.9 cm; Wt 83.5 kg
[~2020-09-01 18:43] MED LIST changes: +LISI-486 PO; -LISI10TA11 PO
[2020-09-01 18:49] VITALS: BP 108/78
[2020-09-01 19:09] LABS: BASOPHILS # (AUTO) 0.1 K/uL (0.00-0.22); BASOPHILS % (AUTO) 1.3 % (0.0-2.0); EOSINOPHILS # (AUTO) 0.2 K/uL (0-0.4); EOSINOPHILS % (AUTO) 1.8 % (0.0-4.0); HEMATOCRIT 33.8 % (36-52); HEMOGLOBIN 10.6 g/dL (12.0-18.0); LYMPHOCYTES # (AUTO) 2.2 K/uL (2.0-11.5); LYMPHOCYTES % (AUTO) 23.7 % (20.5-51.1); MEAN CORPUSCULAR HEMOGLOBIN 21 pg (27-31); MEAN CORPUSCULAR HGB CONC 31 g/dL (33-37); MEAN CORPUSCULAR VOLUME 67.5 fL (80-94); MONOCYTES # (AUTO) 0.6 K/uL (0.8-1.0); MONOCYTES % (AUTO) 6.4 % (1.7-9.3); NEUTROPHILS # (AUTO) 6.2 K/uL (1.8-7.7); NEUTROPHILS % (AUTO) 66.8 % (42.2-75.2); PLATELET COUNT (AUTO) 338 K/uL (140-450); RED BLOOD CELL COUNT(AUTO) 5.01 MIL/uL (4.20-6.10); RED CELL DISTRIBUTION WIDTH 20.6 % (11.6-13.7); WHITE BLOOD COUNT (AUTO) 9.3 K/uL (4.8-10.8)
[2020-09-01] MEDS ORDERED: MORPHINE SULFATE 4 MG/ML SYR IVP ONE (19:20)
[2020-09-01] MEDS ORDERED: ONDANSETRON 4 MG/2 ML VIAL IVP ONE (19:20)
[2020-09-01] MEDS ORDERED: NACL 0.9% 1,000 ML IV ONE ×2 (19:20→20:35)
[2020-09-01 19:50] LABS: ALBUMIN 3.1 g/dL (3.4-5.0); CARBON DIOXIDE 19.4 mmol/L (21-32); CREATININE 1.6 mg/dL (0.6-1.3); POTASSIUM 4.4 mmol/L (3.5-5.1); TOTAL BILIRUBIN 1.7 mg/dL (0.0-1.0)
[2020-09-01 20:58] LABS: APPEARANCE,URINE CLEAR (CLEAR); BILIRUBIN,URINE 1+ (NEGATIVE); BLOOD, URINE NEGATIVE (NEGATIVE); COLOR,URINE ORANGE (YELLOW); LEUKOCYTE ESTERASE ,URINE NEGATIVE (NEGATIVE); NITRITE, URINE NEGATIVE (NEGATIVE); UGLUCOSE NEGATIVE (NEGATIVE)
[2020-09-01] MEDS ORDERED: FURO-570 PO (22:06)
[2020-09-01] MEDS ORDERED: ONDANSETRON 4 MG/2 ML VIAL IM/IVP PRN (22:50)
[2020-09-01] MEDS ORDERED: POTASSIUM CHLORIDE 10 MEQ TABER PO PRN (22:50)
[2020-09-01] MEDS ORDERED: HYDROcodone/APAP 7.5/325 MG 1 TAB PO PRN (22:50)
[2020-09-01] MEDS ORDERED: DOCUSATE SODIUM 100 MG GELCAP PO PRN (22:50)
[2020-09-01] MEDS ORDERED: guaiFENesin DM 200/20 MG-10 ML 10 ML UDC PO PRN (22:50)
[2020-09-01 23:40] VITALS: BP 101/76
[2020-09-01] MEDS: DEXTROSE 5% 1,000 ML IV SCH (23:51)
[2020-09-01 23:55] LABS: PROTHROMBIN TIME 13.5 secs (10.8-13.4)
[2020-09-02] MEDS: ZOLPIDEM 5 MG TAB PO PRN ×2 (00:10→20:47)
[2020-09-02 00:12] LABS: CHOL/HDL RATIO 4.6 (1-4.5); FREE T4 (FREE THYROXINE) 1.28 ng/dL (0.76-1.46); MAGNESIUM 1.9 mg/dL (1.8-2.4); PHOSPHORUS 3.7 mg/dL (2.5-4.9); THYROID STIMULATING HORMONE 2.35 uIU/mL (0.34-3.74)
[2020-09-02] MEDS ORDERED: MORPHINE SULFATE 2 MG/ML SYR IVP SCH (00:30)
[2020-09-02 04:00] VITALS: BP 112/75
[2020-09-02] MEDS: DEXTROSE 5% 1,000 ML IV SCH ×2 (06:20→09:04)
[2020-09-02 07:07] LABS: BASOPHILS # (AUTO) 0.1 K/uL (0.00-0.22); BASOPHILS % (AUTO) 1.2 % (0.0-2.0); EOSINOPHILS # (AUTO) 0.1 K/uL (0-0.4); EOSINOPHILS % (AUTO) 1.1 % (0.0-4.0); HEMATOCRIT 37.9 % (36-52); HEMOGLOBIN 11.6 g/dL (12.0-18.0); LYMPHOCYTES # (AUTO) 2.3 K/uL (2.0-11.5); LYMPHOCYTES % (AUTO) 25.9 % (20.5-51.1); MEAN CORPUSCULAR HEMOGLOBIN 21 pg (27-31); MEAN CORPUSCULAR HGB CONC 31 g/dL (33-37); MEAN CORPUSCULAR VOLUME 68.8 fL (80-94); MONOCYTES # (AUTO) 0.8 K/uL (0.8-1.0); MONOCYTES % (AUTO) 9.3 % (1.7-9.3); NEUTROPHILS # (AUTO) 5.4 K/uL (1.8-7.7); NEUTROPHILS % (AUTO) 62.5 % (42.2-75.2); PLATELET COUNT (AUTO) 376 K/uL (140-450); RED BLOOD CELL COUNT(AUTO) 5.51 MIL/uL (4.20-6.10); RED CELL DISTRIBUTION WIDTH 21.2 % (11.6-13.7); WHITE BLOOD COUNT (AUTO) 8.7 K/uL (4.8-10.8)
[2020-09-02 07:14] LABS: ANION GAP 16.3 (8-16); CARBON DIOXIDE 19.4 mmol/L (21-32); CREATININE 1.7 mg/dL (0.6-1.3); POTASSIUM 4.7 mmol/L (3.5-5.1)
[2020-09-02 08:00] VITALS: BP 120/96
[2020-09-02] MEDS: ACETAMINOPHEN 325 MG TAB PO PRN ×2 (08:58→17:16)
[2020-09-02] MEDS: PANTOPRAZOLE 40 MG TABEC PO SCH (08:58)
[2020-09-02] MEDS: LEVOFLOXACIN 750 MG/D5W PREMIX 150 ML IV SCH (09:22)
[2020-09-02] MEDS ORDERED: FUROSEMIDE 40 MG TAB PO SCH (09:55)
[2020-09-02 12:00] VITALS: BP 127/79
[2020-09-02 16:00] VITALS: BP 125/84
[2020-09-02] MEDS ORDERED: FUROSEMIDE 40 MG/4 ML VIAL IVP SCH (17:00)
[2020-09-02] MEDS: FUROSEMIDE 40 MG/4 ML VIAL IVP SCH (17:15)
[2020-09-02 18:31] LABS: URINE TOTAL PROTEIN 101.4 mg/dL (0-12)
[2020-09-02 18:33] LABS: BARBITURATE, URINE NEGATIVE ng/ml (NEG <=200); BENZODIAZEPINE, URINE NEGATIVE ng/mL (NEG <=200); CANNABINOID, URINE POSITIVE ng/mL (NEG <=50); COCAINE, URINE NEGATIVE ng/mL (NEG <=300); OPIATE, URINE POSITIVE ng/mL (NEG <=2000); PHENCYCLIDINE SCREEN,URINE NEGATIVE ng/mL (NEG <=25)
[2020-09-02 20:00] VITALS: BP 96/61
[2020-09-02] MEDS: SERTRALINE 50 MG TAB PO SCH (20:47)
[2020-09-02] MEDS: MORPHINE SULFATE 2 MG/ML SYR IVP PRN (23:32)
[2020-09-03] VITALS: BP 97/69
[2020-09-03 04:00] VITALS: BP 141/77
[2020-09-03 06:41] LABS: BASOPHILS # (AUTO) 0.1 K/uL (0.00-0.22); BASOPHILS % (AUTO) 1.1 % (0.0-2.0); EOSINOPHILS # (AUTO) 0.3 K/uL (0-0.4); EOSINOPHILS % (AUTO) 2.9 % (0.0-4.0); HEMATOCRIT 34.2 % (36-52); HEMOGLOBIN 10.6 g/dL (12.0-18.0); LYMPHOCYTES # (AUTO) 2.5 K/uL (2.0-11.5); LYMPHOCYTES % (AUTO) 27.9 % (20.5-51.1); MEAN CORPUSCULAR HEMOGLOBIN 21 pg (27-31); MEAN CORPUSCULAR HGB CONC 31 g/dL (33-37); MONOCYTES # (AUTO) 0.8 K/uL (0.8-1.0); NEUTROPHILS # (AUTO) 5.2 K/uL (1.8-7.7); NEUTROPHILS % (AUTO) 59.1 % (42.2-75.2); PLATELET COUNT (AUTO) 333 K/uL (140-450); RED BLOOD CELL COUNT(AUTO) 5.03 MIL/uL (4.20-6.10); WHITE BLOOD COUNT (AUTO) 8.8 K/uL (4.8-10.8)
[2020-09-03 06:49] LABS: ANION GAP 14.9 (8-16); CARBON DIOXIDE 21.9 mmol/L (21-32); CREATININE 1.8 mg/dL (0.6-1.3); POTASSIUM 3.8 mmol/L (3.5-5.1)
[2020-09-03 08:00] VITALS: BP 123/73
[2020-09-03] MEDS: SERTRALINE 50 MG TAB PO SCH ×2 (08:55→20:16)
[2020-09-03] MEDS: FUROSEMIDE 40 MG/4 ML VIAL IVP SCH ×2 (08:55→17:55)
[2020-09-03] MEDS: PANTOPRAZOLE 40 MG TABEC PO SCH (08:55)
[2020-09-03] MEDS: ASPIRIN 81 MG TAB.CHEW PO SCH (08:55)
[2020-09-03] MEDS ORDERED: PANTOPRAZOLE 40 MG TABEC PO SCH (09:00)
[2020-09-03] MEDS ORDERED: lisinopriL 10 MG TAB PO SCH (09:00)
[2020-09-03] MEDS: LEVOFLOXACIN 750 MG/D5W PREMIX 150 ML IV SCH (10:07)
[2020-09-03] MEDS: MORPHINE SULFATE 2 MG/ML SYR IVP PRN (11:32)
[2020-09-03 12:00] VITALS: BP 123/82
[2020-09-03] MEDS ORDERED: DICYCLOMINE HCL LIQUID 20 MG, ALUMINUM HYD/MAG/SIMETHICONE 30 ML, LIDOCAINE VISCOUS 2% ... PO SCH ×3 (12:15)
[2020-09-03] MEDS ORDERED: LIDOCAINE VISCOUS 2% 20 ML UDC ONE (12:33)
[2020-09-03] MEDS ORDERED: ALUMINUM HYD/MAG/SIMETHICONE 30 ML UDC ONE (12:33)
[2020-09-03] MEDS ORDERED: DICYCLOMINE HCL LIQUID 10 MG/5 ML UDC ONE (12:33)
[2020-09-03] MEDS ORDERED: DICYCLOMINE HCL LIQUID 10 MG/5 ML UDC PO SCH (14:25)
[2020-09-03] MEDS ORDERED: LIDOCAINE VISCOUS 2% 20 ML UDC PO SCH (14:25)
[2020-09-03] MEDS ORDERED: ALUMINUM HYD/MAG/SIMETHICONE 30 ML UDC PO SCH (14:25)
[2020-09-03 16:00] VITALS: BP 114/85
[2020-09-03 20:00] VITALS: BP 112/77
[2020-09-04] VITALS: BP 112/75
[2020-09-04 04:00] VITALS: BP 103/68
[2020-09-04 06:08] LABS: HEPATITIS A ANTIBODY IGM Negative (Negative); HEPATITIS B CORE AB TOTAL Negative (Negative); HEPATITIS B SURFACE ANTIBODY Non Reactive (.); HEPATITIS B SURFACE ANTIGEN Negative (Negative)
[2020-09-04 06:38] LABS: BASOPHILS # (AUTO) 0.1 K/uL (0.00-0.22); BASOPHILS % (AUTO) 0.9 % (0.0-2.0); CARBON DIOXIDE 24.8 mmol/L (21-32); CREATININE 1.8 mg/dL (0.6-1.3); EOSINOPHILS # (AUTO) 0.2 K/uL (0-0.4); EOSINOPHILS % (AUTO) 2.4 % (0.0-4.0); HEMATOCRIT 34.1 % (36-52); HEMOGLOBIN 10.6 g/dL (12.0-18.0); LYMPHOCYTES % (AUTO) 21.2 % (20.5-51.1); MEAN CORPUSCULAR HEMOGLOBIN 21 pg (27-31); MEAN CORPUSCULAR HGB CONC 31 g/dL (33-37); MONOCYTES # (AUTO) 0.8 K/uL (0.8-1.0); MONOCYTES % (AUTO) 8.8 % (1.7-9.3); NEUTROPHILS # (AUTO) 6.2 K/uL (1.8-7.7); NEUTROPHILS % (AUTO) 66.7 % (42.2-75.2); PLATELET COUNT (AUTO) 281 K/uL (140-450); POTASSIUM 3.8 mmol/L (3.5-5.1); RED BLOOD CELL COUNT(AUTO) 5.02 MIL/uL (4.20-6.10); RED CELL DISTRIBUTION WIDTH 21.1 % (11.6-13.7); WHITE BLOOD COUNT (AUTO) 9.3 K/uL (4.8-10.8)
[2020-09-04 08:00] VITALS: BP 112/83
[2020-09-04 08:07] LABS: TRANSFERRIN 320 mg/dL (177-329)
[2020-09-04] MEDS: FUROSEMIDE 40 MG/4 ML VIAL IVP SCH (08:49)
[2020-09-04] MEDS: SERTRALINE 50 MG TAB PO SCH (08:50)
[2020-09-04] MEDS: PANTOPRAZOLE 40 MG TABEC PO SCH (08:50)
[2020-09-04] MEDS: ASPIRIN 81 MG TAB.CHEW PO SCH (08:50)
[2020-09-04] MEDS ORDERED: CARV3.12 PO (09:00)
[2020-09-04] MEDS ORDERED: ASPI-1822 PO (09:00)
[2020-09-04] MEDS ORDERED: LISI-486 PO (09:00)
[2020-09-04] MEDS ORDERED: FURO-570 PO (09:00)
[2020-09-04] MEDS ORDERED: ASCO500T95 PO (09:23)
[2020-09-04] MEDS ORDERED: FERR325E14 PO (09:23)
[2020-09-04 20:05] LABS: FERRITIN 23 ng/mL (30 - 400)
== END 2020-09-04 10:09 | disposition left against medical advice (07) | DRG 720 ==
LOC: MED 18:43 → MMU 21:58 → MTU 23:35
PROVIDERS: ADMIT Family Medicine; ATTEND Family Medicine
DX: A41.9 Sepsis, unspecified organism (principal); N17.0 Acute kidney failure with tubular necrosis; I50.43 Acute on chronic combined systolic (congestive) and diastolic (congestive) heart failure; I42.9 Cardiomyopathy, unspecified; E44.0 Moderate protein-calorie malnutrition; R18.8 Other ascites; K65.4 Sclerosing mesenteritis; K74.60 Unspecified cirrhosis of liver; N18.31 Chronic kidney disease, stage 3a; I08.1 Rheumatic disorders of both mitral and tricuspid valves; N28.1 Cyst of kidney, acquired; E78.5 Hyperlipidemia, unspecified; E86.0 Dehydration; J44.9 Chronic obstructive pulmonary disease, unspecified; K75.9 Inflammatory liver disease, unspecified; R91.1 Solitary pulmonary nodule; D50.9 Iron deficiency anemia, unspecified; F15.10 Other stimulant abuse, uncomplicated; Z20.822 Contact with and (suspected) exposure to COVID-19; D63.8 Anemia in other chronic diseases classified elsewhere; F17.210 Nicotine dependence, cigarettes, uncomplicated; Z56.0 Unemployment, unspecified; Z59.0 Homelessness; Z79.899 Other long term (current) drug therapy; Z71.6 Tobacco abuse counseling; Z68.25 Body mass index [BMI] 25.0-25.9, adult
CPT/HCPCS: 36415; 71045; 74150; 76705; 76770; 80048; 80053; 80305; 81003; 82150; 82272; 82570; 82728; 83036; 83540; 83605; 83690; 83735; 83880; 84100; 84300; 84436; 84439; 84443; 84479; 84484; 85025; 85045; 85610; 85730; 86704; 86706; 86708; 86709; 86803; 87040; 87081; 87086; 87340; 93005; 96361; 96374; 96375; 99285; J1940; J1956; J2270; J2405

== ENCOUNTER 2021-03-24 20:41 | Emergency (ER) | payer MEDICAID, SELFPAY ==
[~2021-03-24] VITALS: Ht 182.9 cm; Wt 86.2 kg
[~2021-03-24 20:41] MED LIST changes: +ASCO500T95 PO; +CARV3.12 PO; +FERR325E14 PO
[2021-03-24 21:10] VITALS: BP 122/84
--- NOTE | 2021-03-24 21:13 | NUR ---
TO LOBBY A/W BED AMBULATORY
--- NOTE | 2021-03-24 23:43 | NUR ---
PT LWBS [id number]
--- NOTE | 2021-03-24 23:44 | NUR ---
PATIENT LEFT WITHOUT BEING SEEN BY DR. BOLES. NO FURTHER CARE PROVIDED FOR PATIENT.
== END 2021-03-24 23:44 | disposition left against medical advice (07) ==
LOC: MED 20:41
DX: R05.9 Cough, unspecified (principal); R06.02 Shortness of breath; Z53.21 Procedure and treatment not carried out due to patient leaving prior to being seen by health care provider

== ENCOUNTER 2021-07-26 21:05 | Inpatient (IN) | payer MEDICAID ==
[~2021-07-26] VITALS: Ht 182.9 cm; Wt 89.4 kg
[2021-07-26 21:11] VITALS: BP 110/81
--- NOTE | 2021-07-26 21:11 | NUR ---
Dr. Hernandez examming patient.
--- NOTE | 2021-07-26 21:11 | NUR ---
Wheel chair to bed 5.
--- NOTE | 2021-07-26 21:13 | NUR ---
PT TAKEN TO ER BED 05 VIA WC
[2021-07-26] MEDS ORDERED: NITROGLYCERIN 0.4 MG TAB SL ONE (21:15)
[2021-07-26] MEDS ORDERED: ASPIRIN 325 MG TAB PO ONE (21:15)
[2021-07-26 21:44] LABS: BASOPHILS # (AUTO) 0.1 K/uL (0.00-0.22); BASOPHILS % (AUTO) 1.7 % (0.0-2.0); EOSINOPHILS # (AUTO) 0.1 K/uL (0-0.4); HEMATOCRIT 30.1 % (36-52); HEMOGLOBIN 9.3 g/dL (12.0-18.0); LYMPHOCYTES % (AUTO) 26.4 % (20.5-51.1); MEAN CORPUSCULAR HEMOGLOBIN 22 pg (27-31); MEAN CORPUSCULAR HGB CONC 31 g/dL (33-37); MONOCYTES # (AUTO) 0.5 K/uL (0.8-1.0); MONOCYTES % (AUTO) 6.7 % (1.7-9.3); NEUTROPHILS % (AUTO) 64.2 % (42.2-75.2); PLATELET COUNT (AUTO) 371 K/uL (140-450); RED CELL DISTRIBUTION WIDTH 24.8 % (11.6-13.7); WHITE BLOOD COUNT (AUTO) 7.7 K/uL (4.8-10.8)
[2021-07-26] MEDS: FUROSEMIDE 40 MG/4 ML VIAL IVP SCH ×2 (21:45→21:49)
[2021-07-26 22:02] LABS: ALBUMIN 2.5 g/dL (3.4-5.0); ANION GAP 13.1 (8-16); CARBON DIOXIDE 27.3 mmol/L (21-32); CREATININE 2.7 mg/dL (0.6-1.3); POTASSIUM 3.4 mmol/L (3.5-5.1); TOTAL BILIRUBIN 1.4 mg/dL (0.0-1.0)
[2021-07-26 22:09] LABS: LIPASE 119 U/L (73-393)
--- NOTE | 2021-07-26 22:22 | NUR ---
20G IV CATH PLACED R AC. LABS OBTAINED WALKED TO LAB
[2021-07-26] MEDS ORDERED: ACETAMINOPHEN EXTRA STRENGTH 500 MG TAB PO ONE (22:25)
--- NOTE | 2021-07-26 22:49 | NUR ---
Dr. Brown examming patient.
--- NOTE | 2021-07-26 23:16 | NUR ---
PT STATES HEADACHE 12/23. PATIENT DENIES CP OR SOB AT THIS TIME.
--- NOTE | 2021-07-26 23:24 | NUR ---
Kelsea brown in [facility] - 07/26/21 at [address] HEAD PER ER MD
--- NOTE | 2021-07-26 23:45 | NUR ---
COVID SWAB COLLECTED AND WALKED TO LAB
--- NOTE | 2021-07-26 23:48 | NUR ---
ADMISSION ORDERS TO FOLLOW MED RECONCILE COMPLETED AND UP TO DATE
[2021-07-26] MEDS ORDERED: MORPHINE SULFATE 4 MG/ML SYR IVP ONE (23:55)
[2021-07-26] MEDS ORDERED: ONDANSETRON 4 MG/2 ML VIAL IVP ONE (23:55)
--- NOTE | 2021-07-26 23:58 | NUR ---
CT OF ABD PER ER MD
[2021-07-27] MEDS ORDERED: ONDANSETRON 4 MG/2 ML VIAL ONE
[2021-07-27] MEDS ORDERED: MORPHINE SULFATE 2 MG/ML SYR ONE (00:01)
--- NOTE | 2021-07-27 00:12 | NUR ---
HAND MEAT SALTER PV RECIEVED INFO ON PATIENT .
--- NOTE | 2021-07-27 00:27 | NUR ---
PAIN 3/10; DENIES CP DENIES SOB. PAIN IS NEEL LOWER EXTREMITIES
--- NOTE | 2021-07-27 00:29 | NUR ---
PATIENT RESTING COMFORTABLY. RESP EVEN AND UNLABORED. NO DISTRESS NOTED
--- NOTE | 2021-07-27 01:04 | NUR ---
DR DAILEY PAGED SECOND TIME FOR ADMISSION AT 0104
[2021-07-27 02:22] LABS: HEMATOCRIT 31.7 % (36-52); MEAN CORPUSCULAR HEMOGLOBIN 22 pg (27-31); MEAN CORPUSCULAR HGB CONC 32 g/dL (33-37); MEAN CORPUSCULAR VOLUME 69.2 fL (80-94); PLATELET COUNT (AUTO) 392 K/uL (140-450); RED BLOOD CELL COUNT(AUTO) 4.58 MIL/uL (4.20-6.10); RED CELL DISTRIBUTION WIDTH 24.6 % (11.6-13.7); WHITE BLOOD COUNT (AUTO) 8.5 K/uL (4.8-10.8)
[2021-07-27 02:40] LABS: ANION GAP 14.7 (8-16); CREATININE 2.8 mg/dL (0.6-1.3); POTASSIUM 3.7 mmol/L (3.5-5.1)
[2021-07-27 02:48] LABS: EOSINOPHILS % (MANUAL) 2 % (0-4); LYMPHOCYTES % (MANUAL) 17 % (20-46); MONOCYTES % (MANUAL) 6 % (5-12)
--- NOTE | 2021-07-27 02:50 | NUR ---
Patient will be admitted to care of DR DAILEY. Admited to TELE. Will go to room 111A. Belongings list completed. Report to SHERI KENDALL.
--- NOTE | 2021-07-27 02:50 | NUR ---
The patient's care was reviewed and supervised by Alyson Vicente RN.
--- NOTE | 2021-07-27 02:55 | NUR ---
RECEIVED PATIENT FROM ER TRANSPORTED VIA GURNEY. AWAKE, ALERT AND VERBALIZED NEEDS. PATIENT WITH GENERALIZED WEAKNESS AND NON PITTING EDEMA ON BILATERAL LOWER EXTREMITIES. ABDOMEN DISTENDED. SALINE LOCK ON RIGHT AC INTACT AND PATENT. PATIENT DENIED OF CHEST PAIN. RESPIRATION EVEN. NO SOB OR DISTRESS. VITAL SIGNS STABLE.
--- NOTE | 2021-07-27 04:00 | NUR ---
PATIENT VERBALIZED OF FEELING TIRED. PATIENT ABLE TO FALL ASLEEP AFTER EAT. NO COMPLAINTS OF PAIN OR DISCOMFORT. NO SOB OR DISTRESS. PATIENT STATED IS NOT COLD AND DOES NOT NEED BLANKET.
[2021-07-27 04:15] VITALS: BP 94/70
--- NOTE | 2021-07-27 07:07 | NUR ---
PATIENT HAS BEEN SCREENED AND CATEGORIZED MODERATE NUTRITION RISK. PATIENT WILL BE SEEN WITHIN 3-5 DAYS OF ADMISSION. 07/30/21-08/01/21 LYNN BAEZ MS, RDN
--- NOTE | 2021-07-27 07:25 | NUR ---
PT IS ASLEEP ON SEMI STACY - SUPINE POSITION, NO SOB OR DISTRESS. NO COMPLAINTS OF PAIN OR DISCOMFORT. NO FACIAL GRIMACING. SALINE LOCK ON RIGHT AC INTACT AND PATENT. NO SIGN/SYMPTOM OF INFECTION ON SALINE LOCK SITE. ENDORSE TO DAY SHIFT NURSE FOR CONTINUITY OF PATIENT CARE.
--- NOTE | 2021-07-27 07:27 | NUR ---
RECEIVED PATIENT REPORT FROM [employer] NURSE FOR CONTINUITY OF CARE. PT IS STABLE, AOX4, ABLE TO MAKE NEEDS KNOWN. RESPIRATIONS EVEN AND UNLABORED. ON ROOM AIR AND NO DISTRESS NOTED. SKIN IS WARM, DRY, AND INTACT. IV SITE ON RAC 20G SALINE LOCKED. INTACT AND PATENT. ABD IS SOFT, ROUND, AND DISTENDED. BOWEL SOUNDS ACTIVE IN ALL QUADRANTS. DENIES PAIN AT THE MOMENT. AMB TO THE BATHROOM. PLAN OF CARE DISCUSSED. SAFETY PRECAUTIONS IN PLACE. CALL LIGHT WITHIN REACH. WILL CONTINUE TO MONITOR.
[2021-07-27 08:00] VITALS: BP 98/76
--- NOTE | 2021-07-27 09:45 | NUR ---
NO SCHEDULED MEDS GIVEN. PT IS STABLE. NO DISTRESS NOTED. WILL CONTINUE TO MONITOR.
[2021-07-27] MEDS ORDERED: MAG SULF 2000 MG/WATER PREMIX 50 ML IV PRN (10:50)
[2021-07-27] MEDS ORDERED: POTASSIUM CHLORIDE 10 MEQ TABER PO PRN (10:50)
[2021-07-27] MEDS ORDERED: DOCUSATE SODIUM 100 MG GELCAP PO PRN (10:55)
[2021-07-27] MEDS ORDERED: ONDANSETRON 4 MG/2 ML VIAL IM/IVP PRN (10:55)
[2021-07-27] MEDS ORDERED: ZOLPIDEM 5 MG TAB PO PRN (10:55)
[2021-07-27] MEDS: ACETAMINOPHEN 325 MG TAB PO PRN (11:56)
[2021-07-27 12:00] VITALS: BP 98/68
--- NOTE | 2021-07-27 12:00 | NUR ---
US TECH AT BEDSIDE.
[2021-07-27 12:49] LABS: PROTHROMBIN TIME 12.4 secs (10.8-13.4)
[2021-07-27] MEDS: HYDROcodone/APAP 5/325 MG 1 TAB TAB PO PRN (13:05)
[2021-07-27 14:00] LABS: CHOL/HDL RATIO 4.1 (1-4.5)
--- NOTE | 2021-07-27 14:30 | NUR ---
CHECKED ON PATIENT. PT IS STABLE. NO DISTRESS NOTED. WILL CONTINUE TO MONITOR.
[2021-07-27 15:08] LABS: THYROID STIMULATING HORMONE 8.21 uIU/mL (0.34-3.74)
[2021-07-27 16:00] VITALS: BP 102/74
[2021-07-27] MEDS: FUROSEMIDE 40 MG/4 ML VIAL IVP SCH (17:09)
[2021-07-27] MEDS: MORPHINE SULFATE 2 MG/ML SYR IVP PRN (17:10)
--- NOTE | 2021-07-27 17:10 | NUR ---
ALL SCHEDULED MEDS GIVEN. PT IS STABLE. NO DISTRESS NOTED. WILL CONTINUE TO MONITOR.
--- NOTE | 2021-07-27 19:36 | NUR ---
GET THE REPORT FROM MORNING NURSE MELISSA, PATIENT IS LYING ON BED , PATIENT IS ALERT AND ORIENTED X4 , CALL LIGHT IS WITHIN THE REACH ,WILL CONTINUE TO MONITOR PATIENT.
[2021-07-27 20:00] VITALS: BP 108/76
[2021-07-27] MEDS: LORazepam 2 MG/ML VIAL IM/IVP PRN (20:03)
[2021-07-27] MEDS ORDERED: carvediloL 3.125 MG TAB PO SCH (21:00)
--- NOTE | 2021-07-27 21:34 | NUR ---
PATIENT IS LYING ON BED, VITAL SIGN IS WITHIN THE NORMAL RANGE , PATIENT IS AGITATED AND ASK FOR ATIVAN PRN 1MG IV PUSH GIVEN PER DOCTOR ORDER, ALL SCHEDULE MEDICATION IS GIVEN PER DOCTOR ORDER, CALL LIGHT IS WITHIN THE REACH ,WILL CONTINUE TO MONITOR PATIENT.
[2021-07-28] VITALS: BP 105/74
--- NOTE | 2021-07-28 00:15 | NUR ---
PATIENT IS LYING ON BED,VITAL SIGN IS WITHIN THE NORMAL RANGE ,CALL LIGHT IS WITHIN THE REACH,WILL CONTINUE TO MONITOR PATIENT.
[2021-07-28] MEDS: MORPHINE SULFATE 2 MG/ML SYR IVP PRN ×3 (03:20→16:16)
--- NOTE | 2021-07-28 03:25 | NUR ---
PATIENT IS COMPLAINING OF PAIN IN HEAD 10/23, MORPHINE 2MG IV GIVEN PER DOCTOR ORDER, BLOOD PRESSURE IS 119/83. W[place]: 104. CALL LIGHT IS WITHIN THE REACH, WILL CONTINUE TO MONITOR PATIENT.
[2021-07-28 04:00] VITALS: BP 119/83
--- NOTE | 2021-07-28 04:20 | NUR ---
PATIENT IS LYING ON BED, NO ANY COMPLAIN OF SHORTNESS OF BREATH, VITAL SIGN IS WITHIN THE NORMAL RANGE, CALL LIGHT IS WITHIN THE REACH,WILL CONTINUE TO MONITOR PATIENT.
[2021-07-28 06:36] LABS: ANION GAP 15.2 (8-16); CARBON DIOXIDE 27.2 mmol/L (21-32); CREATININE 2.9 mg/dL (0.6-1.3); POTASSIUM 4.4 mmol/L (3.5-5.1)
[2021-07-28 06:37] LABS: BASOPHILS # (AUTO) 0.1 K/uL (0.00-0.22); BASOPHILS % (AUTO) 1.3 % (0.0-2.0); EOSINOPHILS # (AUTO) 0.1 K/uL (0-0.4); HEMATOCRIT 33.8 % (36-52); HEMOGLOBIN 10.4 g/dL (12.0-18.0); LYMPHOCYTES # (AUTO) 3.5 K/uL (2.0-11.5); LYMPHOCYTES % (AUTO) 34.5 % (20.5-51.1); MEAN CORPUSCULAR HEMOGLOBIN 22 pg (27-31); MEAN CORPUSCULAR HGB CONC 31 g/dL (33-37); MEAN CORPUSCULAR VOLUME 70.9 fL (80-94); MONOCYTES # (AUTO) 1.3 K/uL (0.8-1.0); MONOCYTES % (AUTO) 13.3 % (1.7-9.3); NEUTROPHILS % (AUTO) 49.9 % (42.2-75.2); PLATELET COUNT (AUTO) 395 K/uL (140-450); RED BLOOD CELL COUNT(AUTO) 4.76 MIL/uL (4.20-6.10); RED CELL DISTRIBUTION WIDTH 24.9 % (11.6-13.7); WHITE BLOOD COUNT (AUTO) 10.1 K/uL (4.8-10.8)
[2021-07-28 07:08] LABS: MAGNESIUM 2.2 mg/dL (1.8-2.4); PHOSPHORUS 5.2 mg/dL (2.5-4.9)
--- NOTE | 2021-07-28 07:32 | NUR ---
GAVE REPORT TO MORNING NURSE MELISSA FOR CONTINUOS OF CARE,PATIENT IS STABLE.
--- NOTE | 2021-07-28 07:34 | NUR ---
RECEIVED PATIENT REPORT FROM FORESTRY EXTENSION SPECIALIST NURSE FOR CONTINUITY OF CARE. PT IS STABLE, AOX4, ABLE TO MAKE NEEDS KNOWN. RESPIRATIONS EVEN AND UNLABORED. ON ROOM AIR AND NO DISTRESS NOTED. SKIN IS WARM, DRY, AND INTACT. IV SITE ON RAC 20G SALINE LOCKED. INTACT AND PATENT. ABD IS SOFT, ROUND, AND DISTENDED. BOWEL SOUNDS ACTIVE IN ALL QUADRANTS. DENIES PAIN AT THE MOMENT. AMB TO THE BATHROOM. PLAN OF CARE DISCUSSED. SAFETY PRECAUTIONS IN PLACE. CALL LIGHT WITHIN REACH. WILL CONTINUE TO MONITOR.
[2021-07-28 08:00] VITALS: BP 120/81
[2021-07-28] MEDS: PANTOPRAZOLE 40 MG TABEC PO SCH ×2 (08:24→09:00)
[2021-07-28] MEDS: FUROSEMIDE 40 MG/4 ML VIAL IVP SCH ×2 (08:24→16:15)
--- NOTE | 2021-07-28 08:30 | NUR ---
ALL SCHEDULED MEDS GIVEN. PT IS STABLE. NO DISTRESS NOTED. WILL CONTINUE TO MONITOR.
[2021-07-28] MEDS ORDERED: FUROSEMIDE 40 MG TAB PO SCH (09:00)
[2021-07-28] MEDS ORDERED: lisinopriL 10 MG TAB PO SCH (09:00)
[2021-07-28] MEDS ORDERED: ASPIRIN 81 MG TAB.CHEW PO SCH (09:00)
--- NOTE | 2021-07-28 09:43 | NUR ---
PATIENT COMPLAINED OF HEAD AND NECK PAIN 10/10. ADMINISTERED PRN PAIN MEDS PER MD ORDERED.
[2021-07-28 12:00] VITALS: BP 119/87
--- NOTE | 2021-07-28 12:10 | NUR ---
CHECKED ON PATIENT. PT IS STABLE. NO DISTRESS NOTED. WILL CONTINUE TO MONITOR.
[2021-07-28 12:59] LABS: APPEARANCE,URINE CLEAR (CLEAR)
[2021-07-28 13:00] LABS: COLOR,URINE ORANGE (YELLOW); PH,URINE 5.5 (5.0-9.0)
[2021-07-28 13:01] LABS: BLOOD, URINE NEGATIVE (NEGATIVE); UGLUCOSE NEGATIVE (NEGATIVE)
[2021-07-28 13:02] LABS: BILIRUBIN,URINE 1+ (NEGATIVE); LEUKOCYTE ESTERASE ,URINE NEGATIVE (NEGATIVE); NITRITE, URINE NEGATIVE (NEGATIVE)
[2021-07-28 13:11] LABS: BARBITURATE, URINE NEGATIVE ng/ml (NEG <=200); BENZODIAZEPINE, URINE NEGATIVE ng/mL (NEG <=200); CANNABINOID, URINE NEGATIVE ng/mL (NEG <=50); COCAINE, URINE NEGATIVE ng/mL (NEG <=300); OPIATE, URINE POSITIVE ng/mL (NEG <=2000); PHENCYCLIDINE SCREEN,URINE NEGATIVE ng/mL (NEG <=25)
[2021-07-28 13:16] LABS: RBC,URINE 0-5 /HPF (0-5); WBC,URINE 0-5 /HPF (0-5); YEAST,URINE None Seen /HPF (None Seen)
[2021-07-28 13:17] LABS: OTHER CASTS, URINE None Seen /LPF (None Seen); TRICHOMONAS,URINE None Seen /HPF (None Seen)
--- NOTE | 2021-07-28 15:30 | NUR ---
ASSISTED PATIENT TO THE BATHROOM AND CHANGE LINEN.
[2021-07-28 16:00] VITALS: BP 117/80
--- NOTE | 2021-07-28 16:16 | NUR ---
PATIENT COMPLAINED OF HEAD AND NECK PAIN 10/10. ADMINISTERED PRN PAIN MEDS PER MD ORDERED.
--- NOTE | 2021-07-28 19:30 | NUR ---
ENDORSED TO INSULATION PACKER NURSE FOR CONTINUITY OF CARE. PT IS STABLE.
--- NOTE | 2021-07-28 19:30 | NUR ---
RECEIVED REPORT FOR CONTINUITY OF CARE FROM RN DAYSHIFT NURSE AT BEDSIDE, PT SITTING UP AT THE EDGE OF BED IN MILD DISTRESS ASKING ABOUT HIS PAIN MEDICATIONS. HE IS AOX 3-4, HE IS ON ROOM AIR, BUT HAS 2 LITERS VIA 02 FOR COMFORT MEASURES. HIS LEGS FROM FEET TO UPPER THIGHS ARE EDEMATOUS WITH NON PITTING EDEMA. HIS ABDOMEN IS FIRM AND VERY DISTENDED. PT HAS BEDSIDE COMMODE BUT WANTS TO WALK TO TOILET. PT ENCOURAGED TO USE BEDSIDE COMMODE FOR SAFETY IS HE FEELS THAT HE CANNOT WAIT FOR STAFF TO PROVIDE STAND BY ASSISTANCE TO THE TOILET. PT VERBALIZED UNDERSTANDING. ALL ORDERED PRECAUTIONS IN PLACE.
[2021-07-28 20:00] VITALS: BP 109/71
--- NOTE | 2021-07-28 20:30 | NUR ---
PT SITTING AT THE EDGE OF BED SUPPLEMENTAL 02 AT HIS SIDE, V/S FOLLOWS; T 98.0 P 72 R 22 B/P 109/71 02 91% ON ROOM AIR. PT C/O THAT 02 IS MAKING HIS NOSE CLOGGED. PT ASKING FOR PAIN MEDICATION. ALL ORDERED PRECAUTIONS IN PLACE.
[2021-07-28] MEDS: LORazepam 2 MG/ML VIAL IM/IVP PRN (21:18)
--- NOTE | 2021-07-28 21:30 | NUR ---
PT WENT TO THE TOILET INDEPENDENTLY, HE VOIDED AND HAD A VERY SMALL BM. EXPLAINED TO PT THAT MORPHINE WAS NOT DUE YET BUT THAT ATIVAN COULD BE GIVEN FOR HIS AGITATION/ANXIETY. PT SAID THAT WOULD BE OK. PT LUNG SOUNDS DIMINISHED ON ROOM AIR AND HE APPEARS GENERALLY UNCOMFORTABLE, ESPECIALLY DUE TO THE VERY LARGE AND DISTENDED ABDOMEN. . PT DECLINED THE ORDERED HEPARIN SQ; RISKS AND BENEFITS EXPLAINED. PT SAID HE DIDN'T WANT ANY MORE NEEDLES TODAY. PT WAS GIVEN IVP ATIVAN 1 MG IVP FOR AGITATION /ANXIETY. PT ENCOURAGED AND ESCORTED BACK TO BED FROM HIS CHAIR. PT MADE COMFORTABLE IN BED AND ALL REQUESTED NEEDS ATTENDED BY STAFF, WILL CONTINUE OT MONITOR PT FOR DISCOMFORT. REMINDED PT THAT HE IS TO BE NPO AFTER MIDNIGHT FOR PARACENTESIS. ALL ORDERED PRECAUTIONS IN PLACE.
--- NOTE | 2021-07-28 22:30 | NUR ---
PT IN BED RESTING WITH 2 LITERS SUPPLEMENTAL 02 VIA N/C. HOB ABOUT 45% ELEVATED. ALL ORDERED PRECAUTIONS IN PLACE.
[2021-07-29] VITALS: BP 110/89
--- NOTE | 2021-07-29 00:30 | NUR ---
PT WAS SITTING UP IN BED AT THE EDGE OF BED. HE WAS NOTED TO BE USING ACCESSORY MUSCLES TO BREATHE. PT DECLINING SUPPLEMENTAL 02 AT THIS TIME. V/S FOLLOWS: T 98.2 P 81 R 20 B/P 110/89 02 96% ON ROOM AIR. ALL ORDERED PRECAUTIONS IN PLACE.
--- NOTE | 2021-07-29 02:45 | NUR ---
PT LAID DOWN IN BED AND IS RESTING COMFORTABLY , HE IS SLEEPING IN BED PT NOTED USING ACCESSORY MUSCLES TO BREATHE. DECLINES SUPPLEMENTAL 02. BED ALARM ON FOR FALLS PRECAUTIONS.
--- NOTE | 2021-07-29 03:00 | NUR ---
NORMA CALLED FROM [facility], IN REGARDING TO PURPOSE OF THE VIDEO SESSION. PT WAS TOLD THAT MD REQUESTING SESSION DUE TO PT DEPRESSION. NORMA SAID THAT SHE WILL CALL BACK TOMORROW AFTER NINE TO LET STAFF KNOW THE NAME OF THE MD AND THE TIME THEY WILL CALL BACK FOR A VIDEO CHAT.
[2021-07-29 04:00] VITALS: BP 107/68
--- NOTE | 2021-07-29 04:15 | NUR ---
PT IN BED ASLEEP HE IS ON ROOM AIR, USING ACCESSORY MUSCLES TO BREATHE. PT CONTINUES TO HAVE LOWER LEG EDEMA. HE HAS NO NOTED S/S OF PAIN AND DISTRESS. HE IS ON ROOM AIR. V/S FOLLOWS: T 98.1 P 78 R 20 B/P 107/68 02 95% ON ROOM AIR. ALL ORDERED PRECAUTIONS IN PLACE.
--- NOTE | 2021-07-29 06:12 | NUR ---
JENNIFER FROM RADIOLOGY CALLED AND ASKED TO ENDORSE TO AM SHIFT TO HOLD HEPARIN DUE TO PARACENTESIS PROCEDURE THIS AM. CONSENT PRINTED OUT.
[2021-07-29 06:48] LABS: BASOPHILS # (AUTO) 0.1 K/uL (0.00-0.22); BASOPHILS % (AUTO) 0.7 % (0.0-2.0); EOSINOPHILS # (AUTO) 0.1 K/uL (0-0.4); HEMATOCRIT 32.8 % (36-52); HEMOGLOBIN 10.3 g/dL (12.0-18.0); LYMPHOCYTES # (AUTO) 1.7 K/uL (2.0-11.5); LYMPHOCYTES % (AUTO) 17.8 % (20.5-51.1); MEAN CORPUSCULAR HEMOGLOBIN 22 pg (27-31); MEAN CORPUSCULAR HGB CONC 31 g/dL (33-37); MEAN CORPUSCULAR VOLUME 70.4 fL (80-94); MONOCYTES # (AUTO) 1.3 K/uL (0.8-1.0); MONOCYTES % (AUTO) 13.7 % (1.7-9.3); NEUTROPHILS # (AUTO) 6.2 K/uL (1.8-7.7); NEUTROPHILS % (AUTO) 66.8 % (42.2-75.2); PLATELET COUNT (AUTO) 402 K/uL (140-450); RED BLOOD CELL COUNT(AUTO) 4.65 MIL/uL (4.20-6.10); RED CELL DISTRIBUTION WIDTH 24.2 % (11.6-13.7); WHITE BLOOD COUNT (AUTO) 9.3 K/uL (4.8-10.8)
[2021-07-29 06:58] LABS: ANION GAP 17.1 (8-16); CARBON DIOXIDE 24.9 mmol/L (21-32); CREATININE 3.2 mg/dL (0.6-1.3)
[2021-07-29 07:05] LABS: MAGNESIUM 2.4 mg/dL (1.8-2.4); PHOSPHORUS 5.8 mg/dL (2.5-4.9)
--- NOTE | 2021-07-29 07:45 | NUR ---
GOT REPORT FROM THE NIGHT NURSE, PT IN BED SLEEPING BREATHING WITHOUT 02 NO SOB. [id number]
[2021-07-29 08:00] VITALS: BP 113/84
[2021-07-29] MEDS: FUROSEMIDE 40 MG/4 ML VIAL IVP SCH (09:11)
[2021-07-29] MEDS: PANTOPRAZOLE 40 MG TABEC PO SCH (09:12)
--- NOTE | 2021-07-29 10:11 | NUR ---
PT IS HAVING PARACENTESIS AT BED SIDE. [id number]
--- NOTE | 2021-07-29 11:29 | NUR ---
DC PLANNING SW ATTEMPTED TO MEET PATIENT AT BEDSIDE HOWEVER, PATIENT WAS HAVING A PROCEDURE DONE AT BEDSIDE WITH CARE PROVIDER. SW WILL FOLLOW UP.
[2021-07-29 12:00] VITALS: BP 104/73
--- NOTE | 2021-07-29 12:41 | NUR ---
HEPARIN IS NOT GIVEN C\O PATIENT JUST HAD PARACENTESIS.[id number]
[2021-07-29] MEDS ORDERED: ALBUMIN HUMAN 25% 100 ML IV SCH ×2 (14:13→18:00)
[2021-07-29 16:00] VITALS: BP 104/73
[2021-07-29] MEDS: FUROSEMIDE 40 MG TAB PO SCH (17:13)
[2021-07-29] MEDS: MORPHINE SULFATE 2 MG/ML SYR IVP PRN (17:14)
[2021-07-29 19:49] LABS: BILIRUBIN,URINE 1+ (NEGATIVE); BLOOD, URINE NEGATIVE (NEGATIVE); LEUKOCYTE ESTERASE ,URINE NEGATIVE (NEGATIVE); NITRITE, URINE NEGATIVE (NEGATIVE); PH,URINE 5.5 (5.0-9.0); UGLUCOSE NEGATIVE (NEGATIVE)
[2021-07-29 19:53] LABS: APPEARANCE,URINE CLEAR (CLEAR); COLOR,URINE AMBER (YELLOW)
[2021-07-29 20:00] VITALS: BP 95/60
--- NOTE | 2021-07-29 20:00 | NUR ---
RECEIVED BEDSIDE REPORT FROM DAY NURSE FOR CONTINUITY OF CARE. PATIENT A/A/OX4, LAYING IN BED JUST FINISHED HIS DINNER. PT DENIES ANY CHEST PAIN, SOB , PALPITATIONS AND DIZZINESS. PATIENT S/P PARACENTESIS EARLIER WITH 8.9 LITERS OUTPUT. LEFT ABDOMINAL SIDE PUNCTURE SITE DRESSING C/D/I. NO BLEEDING OR OOZING NOTED. VSS, AFEBRILE, SATING 96% ON RA. SR WITH BIPHASIC T ON PUBLIC RELATIONS REPRESENTATIVE, HR- 92. PAGED DR DAILEY EARLIER AND ASKED MD IF WE CAN GIVE THE NIGHT DOSE OF THE HEPARIN SQ. PER DR DAILEY OK TO RESUME, PLATELET 402. FALL PRECAUTION IMPLEMENTED. INSTRUCTED THE PATIENT NOT TO GET OUT OF BED WITHOUT ASSISTANCE. PATIENT VERBALIZED UNDERSTANDING. CALL LIGHT WITHIN REACH. WILL CONTINUE POC AND MONITORING.
[2021-07-29 20:08] LABS: URINE TOTAL PROTEIN 26.8 mg/dL (0-12)
--- NOTE | 2021-07-29 22:00 | NUR ---
ALL DUE MEDS GIVEN AND PATIENT TOLERATED IT WELL. NO ADVERSE DRUG REACTION NOTED AND NO COMPLAIN FROM THE PATIENT. WILL CONTINUE POC.
[2021-07-30] VITALS (7 sets, daily range): BP systolic 98–109; BP diastolic 66–78
--- NOTE | 2021-07-30 | NUR ---
VITAL SIGNS STABLE, AFEBRILE, SATING 97% ON RA. SINUS RHYTHM WITH BIPHASIC T ON RIGHT OF WAY MAN, HR-90. COMPLAINING OF GENERALIZED PAIN 10/10. WILL MEDICATE THE PATIENT ORDERED. CALL LIGHT WITHIN REACH.
[2021-07-30] MEDS: MORPHINE SULFATE 2 MG/ML SYR IVP PRN ×2 (00:11→18:24)
--- NOTE | 2021-07-30 02:00 | NUR ---
PATIENT ASLEEP AT THIS TIME. VISIBLE CHEST RISE AND FALL NOTED. NOT IN ANY DISTRESS. WILL CONTINUE OBSERVATION.
--- NOTE | 2021-07-30 04:00 | NUR ---
VITAL SIGNS STABLE, AFEBRILE, SATING 97% ON RA. SINUS RHYTHM WITH BIPHASIC T ON DYE FEEDER, HR-94. NO COMPLAIN OF PAIN AT THIS TIME. CALL LIGHT WITHIN REACH.
--- NOTE | 2021-07-30 06:25 | NUR ---
NO ACUTE EVENT THROUGHOUT THE NIGHT. PATIENT STABLE AND NOT IN ANY DISTRESS. NO COMPLAIN AT THIS TIME. ALL NEEDS ATTENDED.WILL ENDORSE THE PATIENT TO THE ONCOMING RN FOR CONTINUITY OF CARE.
[2021-07-30 07:01] LABS: ANION GAP 13.7 (8-16); CARBON DIOXIDE 27.9 mmol/L (21-32); CREATININE 3.3 mg/dL (0.6-1.3); POTASSIUM 4.6 mmol/L (3.5-5.1)
[2021-07-30 07:02] LABS: BASOPHILS # (AUTO) 0.1 K/uL (0.00-0.22); BASOPHILS % (AUTO) 1.2 % (0.0-2.0); EOSINOPHILS # (AUTO) 0.2 K/uL (0-0.4); EOSINOPHILS % (AUTO) 2.3 % (0.0-4.0); HEMOGLOBIN 9.6 g/dL (12.0-18.0); LYMPHOCYTES # (AUTO) 1.1 K/uL (2.0-11.5); LYMPHOCYTES % (AUTO) 16.2 % (20.5-51.1); MEAN CORPUSCULAR HEMOGLOBIN 22 pg (27-31); MEAN CORPUSCULAR HGB CONC 31 g/dL (33-37); MEAN CORPUSCULAR VOLUME 70.2 fL (80-94); MONOCYTES # (AUTO) 0.7 K/uL (0.8-1.0); MONOCYTES % (AUTO) 9.6 % (1.7-9.3); NEUTROPHILS % (AUTO) 70.7 % (42.2-75.2); PLATELET COUNT (AUTO) 332 K/uL (140-450); RED BLOOD CELL COUNT(AUTO) 4.42 MIL/uL (4.20-6.10); RED CELL DISTRIBUTION WIDTH 24.4 % (11.6-13.7); WHITE BLOOD COUNT (AUTO) 7.1 K/uL (4.8-10.8)
[2021-07-30 07:04] LABS: MAGNESIUM 2.2 mg/dL (1.8-2.4); PHOSPHORUS 5.5 mg/dL (2.5-4.9)
--- NOTE | 2021-07-30 07:25 | NUR ---
ENDORSED PT TO DAY RN FOR CONTINUITY OF CARE. PATIENT STABLE. SIGNING OFF.
[2021-07-30] MEDS: FUROSEMIDE 40 MG TAB PO SCH ×2 (08:38→16:46)
[2021-07-30] MEDS: PANTOPRAZOLE 40 MG TABEC PO SCH (08:38)
--- NOTE | 2021-07-30 09:01 | NUR ---
PT IN STABLE CONDITION, VSS, NAD NOTED. PT EATING BREAKFAST, MEDICATIONS GIVEN. WILL WORK WITH PT.
--- NOTE | 2021-07-30 10:32 | NUR ---
07/30/21 RD INITIAL ASSESSMENT COMPLETED PLEASE REFER TO NUTRITION ASSESSMENT UNDER CARE ACTIVITY FOR ESTIMATED NUTRITIONAL NEEDS. 1. RECOMMEND RENAL DIET WITH NEPRO 1XDAY 2. MONITOR NUTRITION-RELATED LAB VALUES 3. RD TO FOLLOW-UP 3-5 DAYS, MODERATE RISK VERONICA ROBLEDO, RD
[2021-07-30] MEDS: CALCIUM ACETATE 667 MG TAB PO SCH ×2 (12:14→16:46)
--- NOTE | 2021-07-30 14:44 | NUR ---
DC PLANNING: PATIENT HAS AN ORDER TO FOLLOW UP WITH BANK EXAMINER, NEPHSHE AND GI. FAXED THE ORDER TO [facility]. CALLED ANOOP AT [facility] STATED ISAEL IS THE DC STAIN DIPPER AND TO NOTIFY HER. CALLED ISAEL AT [phone] LEFT A MESSAGE. CM TO FOLLOW. Addendum: 07/31/21 at 1241 by Spring Anderson RN DC PLANNING: CALLED [facility] [phone] SPOKE WITH ISAEL DC STAIN DIPPER STATED SHE ALREADY APPROVED THE DR'S VISIT WILL SENT BY MAIL TO PATIENT'S ADDRESS AND TO INSTRUCT PT TO CALL THE DR'S OFFICE. GI WILL BE DR ASHBY ,NEPHRO WILL BE DR PENA AND CARDIO WILL BE DR HENRIQUEZ. CM SPOKE WITH PATIENT AND INSTRUCT HIM TO CALL DR'S OFFICE. PATIENT VERBALIZED UNDERSTANDING.
[2021-07-30 15:05] LABS: TOTAL PROTEIN URINE 30.9 MG/DL
[2021-07-30] MEDS: ACETAMINOPHEN 325 MG TAB PO PRN (17:25)
--- NOTE | 2021-07-30 18:33 | NUR ---
PT IS AOX4, VSS, NAD NOTED. PT C/O IN ABDOMINAL REGION RELIEVED WITH MEDICATION. PT AWARE OF POC, QUESTIONS/CONCERNS ANSWERED AND SAFETY MEASURES IN PLACE.
--- NOTE | 2021-07-30 19:12 | NUR ---
ENDORSED CARE TO ENOCH CHERY.
--- NOTE | 2021-07-30 19:15 | NUR ---
RECEIVED BEDSIDE REPORT FROM DAY SHIFT RN FOR CONTINUITY OF CARE. PT IS SLEEPING IN BED COMFORTABLY. PT ON RA. AAOX4. NOT IN ANY DISTRESS. BREATHING EVEN AND UNLABORED. PT HAS RIGHT AC 20 GAUGE. NO COMPLAINS AT THIS TIME. ALL SAFETY MEASURES TAKEN. WILL CONTINUE TO MONITOR THE PT.
[2021-07-30] MEDS: HYDROcodone/APAP 5/325 MG 1 TAB TAB PO PRN (20:33)
--- NOTE | 2021-07-30 20:35 | NUR ---
PT COMPLAINING OF GENERALIZE PAIN 08/23. NORCO GIVEN PER MD ORDER.
[2021-07-31] MEDS: MORPHINE SULFATE 2 MG/ML SYR IVP PRN ×2 (00:18→08:29)
--- NOTE | 2021-07-31 00:20 | NUR ---
PT IS COMPLAINING OF GENERALIZE PAIN 10/10. MORPHINE GIVEN PER MD ORDER.
--- NOTE | 2021-07-31 03:41 | NUR ---
PT IS SLEEPING IN BED COMFORTABLY. PT IS NOT IN ANY DISTRESS. BREATHING EVEN AND UNLABORED. CALL LIGHT WITHIN REACH. ALL SAFETY MEASURES TAKEN. WILL CONTINUE TO MONITOR THE PT.
[2021-07-31 04:00] VITALS: BP 102/68
--- NOTE | 2021-07-31 07:09 | NUR ---
ENDORSED PT TO DAY SHIFT RN FOR CONTINUITY OF CARE. PT IS STABLE.
--- NOTE | 2021-07-31 07:30 | NUR ---
RECEIVED REPORT FROM OFFBEARER NURSE. PT RESTING IN BED, EYES CLOSED. NO S/S OF DISTRESS. BREATHING SYMMETRICAL. CALL LIGHT IN REACH. ALL SAFETY MEASURES IN PLACE.
[2021-07-31 07:33] LABS: BASOPHILS % (AUTO) 0.7 % (0.0-2.0); EOSINOPHILS # (AUTO) 0.2 K/uL (0-0.4); EOSINOPHILS % (AUTO) 2.8 % (0.0-4.0); HEMATOCRIT 31.5 % (36-52); HEMOGLOBIN 9.9 g/dL (12.0-18.0); LYMPHOCYTES # (AUTO) 1.1 K/uL (2.0-11.5); MEAN CORPUSCULAR HEMOGLOBIN 22 pg (27-31); MEAN CORPUSCULAR HGB CONC 32 g/dL (33-37); MONOCYTES # (AUTO) 0.6 K/uL (0.8-1.0); MONOCYTES % (AUTO) 8.5 % (1.7-9.3); PLATELET COUNT (AUTO) 320 K/uL (140-450)
[2021-07-31 07:34] LABS: ANION GAP 11.4 (8-16); CARBON DIOXIDE 28.4 mmol/L (21-32); CREATININE 2.5 mg/dL (0.6-1.3); POTASSIUM 3.8 mmol/L (3.5-5.1)
[2021-07-31 08:00] VITALS: BP 111/76
[2021-07-31 08:06] LABS: MAGNESIUM 2.2 mg/dL (1.8-2.4); PHOSPHORUS 4.2 mg/dL (2.5-4.9)
[2021-07-31] MEDS: PANTOPRAZOLE 40 MG TABEC PO SCH (08:27)
[2021-07-31] MEDS: CALCIUM ACETATE 667 MG TAB PO SCH ×2 (08:28→12:13)
[2021-07-31] MEDS: FUROSEMIDE 40 MG TAB PO SCH (08:30)
[2021-07-31] MEDS ORDERED: FURO-570 PO (10:17)
[2021-07-31] MEDS ORDERED: CARV3.12 PO (10:17)
--- NOTE | 2021-07-31 12:04 | NUR ---
INFORMED PT OF DISCHARGE ORDER. PT WILL DC AROUND 1300. CALLED DIETARY TO PROVIDE HOMELESS MEAL FOR PT. CLOTHES PROVIDED TO PT VIA SECURITY. NO S/S OF DISTRESS. CALL LIGHT IN REACH. ALL SAFETY MEASURES IN PLACE
[2021-07-31 12:08] LABS: HEPATITIS A ANTIBODY IGM Negative (Negative); HEPATITIS B CORE AB TOTAL Negative (Negative); HEPATITIS B SURFACE ANTIBODY Non Reactive (.); HEPATITIS B SURFACE ANTIGEN Negative (Negative)
--- NOTE | 2021-07-31 13:17 | NUR ---
PHYSICAL THERAPY CO-SIGN The Physical Therapy Progress Notes documented by Drawer In Hand have been reviewed. Reviewed/Co-Signed by: Sharmaine River Documentation Done by: ABIGAIL RANGEL PTA Addendum: 07/31/21 at 1317 by Sharmaine River PT Amended: Links added.
--- NOTE | 2021-07-31 14:11 | NUR ---
PT DISCHARGED WHEELED TO [facility]. LEFT IN PRIVATE VEHICLE WITH FRIEND. IV REMOVED, CANULA INTACT. ID BAND REMOVED. NO S/S OF DISTRESS. ALL SAFETY MEASURES IN PLACE. ALL PERSONAL BELONGINGS IN POSSESSION
--- NOTE | 2021-07-31 16:09 | NUR ---
DC PLANNING PATIENT IS A 45 YR OLD MALE WHO PRESENTED TO [facility] ON 07/27 FOR SHORTNESS OF BREATH AND BODY SWELLING. PATIENT HAS HX OF CHF. SW MET WITH PATIENT AT BEDSIDE TO GATHER COLLATERAL INFORMATION. PATIENT REPORTS RECENTLY RESIDING AT THE ADDRESS ON FILE AND REPORTED THAT HOME IS A SOBER LIVING HOME. PATIENT REPORTS THAT HE WILL NOT BE RETURNING UNTIL A BED OPENS BACK UP. SW OFFERED PATIENT HOMELESS RESOURCE, WHICH PATIENT DECLINED. PATIENT REPORTS EMERGENCY CONTACT JOSEPH IDGGS (bil) [phone]. PATIENT DENIED HAVING AD IN PLACE AND DECLINED AD PACKET OFFERED BY [facility]. PATIENT REPORTS BEING AMBULATORY AND DENIES USE OF DME. PATIENT REPORTS BEING MEDICATION COMPLAINT AND DENIES BARRIERS IN ACCESSING MEDICATIONS. PATIENT REPORTS RECEIVING MEDICATION FROM [facility] IN [place], WHEN NEEDED. PATIENT DENIED HX OF DIALYSIS OR HH. SW INQUIRED ON SUBSTANCE USE HX CLIENT TESTED POSITIVE FOR AMPHETAMINE AND OPIATE USE.PATIENT DECLINED TO PROVIDE SW WITH SA HX. PATIENT OFFERED PATIENT SUBSTANCE USE RESOURCES, HOWEVER, PATIENT DECLINED. SW SPOKE TO PATIENT ABOUT THE IMPORTANCE OF FOLLOW UP CARE. PATIENT REPORTED THAT HE WOULD BE IN CONTACT WITH DRS. PATIENT REPORTS A FRIEND WILL BE PROVIDING TRANSPORTATION ONCE CLEARED FOR DC.
[2021-08-01] MEDS ORDERED: ALBUMIN HUMAN 25% 100 ML IV SCH (06:30)
== END 2021-07-31 14:10 | disposition home or self-care (01) | DRG 194 ==
LOC: MED 21:05 → MTU 07-27 02:03 → MMU 07-30 12:55
PROC: 0W9G3ZZ Drainage of Peritoneal Cavity, Percutaneous Approach (ICD-10-PCS; principal; 2021-07-29)
DX: I13.0 Hypertensive heart and chronic kidney disease with heart failure and stage 1 through stage 4 chronic kidney disease, or unspecified chronic kidney disease (principal); N17.0 Acute kidney failure with tubular necrosis; K76.7 Hepatorenal syndrome; G92.9 Unspecified toxic encephalopathy; E43 Unspecified severe protein-calorie malnutrition; R18.8 Other ascites; F33.2 Major depressive disorder, recurrent severe without psychotic features; I42.9 Cardiomyopathy, unspecified; T43.621A Poisoning by amphetamines, accidental (unintentional), initial encounter; I50.43 Acute on chronic combined systolic (congestive) and diastolic (congestive) heart failure; F15.10 Other stimulant abuse, uncomplicated; F12.10 Cannabis abuse, uncomplicated; D64.9 Anemia, unspecified; E55.9 Vitamin D deficiency, unspecified; I70.90 Unspecified atherosclerosis; E87.6 Hypokalemia; Z20.822 Contact with and (suspected) exposure to COVID-19; N18.30 Chronic kidney disease, stage 3 unspecified; K74.60 Unspecified cirrhosis of liver; Y92.89 Other specified places as the place of occurrence of the external cause; Z79.899 Other long term (current) drug therapy; Z68.26 Body mass index [BMI] 26.0-26.9, adult; Z59.00 Homelessness unspecified
CPT/HCPCS: 36415; 49083; 71045; 76705; 76770; 80048; 80053; 80305; 81001; 81003; 82570; 83036; 83690; 83735; 83880; 84100; 84134; 84156; 84300; 84443; 84484; 85025; 85610; 85730; 86704; 86706; 86708; 86709; 86803; 87081; 87340; 93005; 96374; 96375; 97112; 97116; 97163-GP; 97530; 99285; J1644; J1940; J2001; J2060; J2270; J2405; P9046; Q0092

== ENCOUNTER 2021-08-13 15:55 | Inpatient (IN) | payer MEDICAID ==
[~2021-08-13] VITALS: Ht 185.4 cm; Wt 70.8 kg
[~2021-08-13 15:55] MED LIST changes: -FERR325E14 PO; +LACT-103 PO; -LISI-486 PO; -SERT100T PO
[2021-08-13 16:26] VITALS: BP 112/71
--- NOTE | 2021-08-13 16:42 | NUR ---
45 Y/O MALE BIB SELF C/O ABD PAIN 12/23, BLACK STOOL, SOB, CHEST PAIN, STATED THAT THEY WERE IN MEDSURG TODAY AND LEFT AMA. SKIN APPEARS JAUNDICED, ABD IS ROUND AND DISTENDED. NKA PMH: CHF
[2021-08-13 17:04] LABS: BASOPHILS # (AUTO) 0.1 K/uL (0.00-0.22); BASOPHILS % (AUTO) 0.7 % (0.0-2.0); EOSINOPHILS # (AUTO) 0.1 K/uL (0-0.4); EOSINOPHILS % (AUTO) 1.2 % (0.0-4.0); HEMATOCRIT 33.1 % (36-52); HEMOGLOBIN 10.2 g/dL (12.0-18.0); LYMPHOCYTES % (AUTO) 12.2 % (20.5-51.1); MEAN CORPUSCULAR HEMOGLOBIN 22 pg (27-31); MEAN CORPUSCULAR HGB CONC 31 g/dL (33-37); MEAN CORPUSCULAR VOLUME 70.6 fL (80-94); MONOCYTES # (AUTO) 0.5 K/uL (0.8-1.0); MONOCYTES % (AUTO) 5.9 % (1.7-9.3); NEUTROPHILS # (AUTO) 6.4 K/uL (1.8-7.7); PLATELET COUNT (AUTO) 221 K/uL (140-450); RED BLOOD CELL COUNT(AUTO) 4.68 MIL/uL (4.20-6.10); RED CELL DISTRIBUTION WIDTH 22.6 % (11.6-13.7)
[2021-08-13 17:35] LABS: ALBUMIN 2.7 g/dL (3.4-5.0); CREATININE 1.4 mg/dL (0.6-1.3); LIPASE 135 U/L (73-393); TOTAL BILIRUBIN 1.2 mg/dL (0.0-1.0)
[2021-08-13] MEDS ORDERED: FUROSEMIDE 40 MG/4 ML VIAL IVP SCH (17:55)
[2021-08-13 19:14] LABS: ANION GAP 10.4 (8-16); POTASSIUM 4.4 mmol/L (3.5-5.1)
--- NOTE | 2021-08-13 19:19 | NUR ---
Pt report given to RUI KENDALL. Transfer of care at this time.
--- NOTE | 2021-08-13 19:29 | NUR ---
fax sent to [phone] OF CLINICALS AND FACE SHEET
--- NOTE | 2021-08-13 19:30 | NUR ---
SITTING UP IN BED C/O HUNGER. SANDWICH GIVEN
--- NOTE | 2021-08-13 22:24 | NUR ---
TRANSFERED VIA W/C TO 106B. REPORT GIVEN BEDSIDE TO ENOCH REYES
[2021-08-13] MEDS: carvediloL 3.125 MG TAB PO SCH (22:40)
[2021-08-13 23:05] VITALS: BP 102/73
--- NOTE | 2021-08-13 23:05 | NUR ---
RECEIVED PT REPORT FROM ER NURSE.PT ARRIVED VIA WHEELCHAIR. PT A&OX4, BREATHING EQUAL AND UNLABORED. CLEAR BREATH SOUNDS UPON AUSCULTATION.ABDOMEN DISTENDED, EDEMA ON BILATERAL LOWER EXTREMITIES NOTED. DENIES ABDOMINAL PAIN AT THIS TIME, SKIN WARM DRY AND INTACT. VITALS FOLLOWS BP 102/73, HR 106, RR 22, T 96.4, O2 99%.MRSA SWAB DONE. ALL PRECAUTIONS IN PLACE. WILL CONTINUE TO MONITOR.
--- NOTE | 2021-08-14 02:00 | NUR ---
PT WAS PUT ON 2L O2 VIA NC PT COMPLAINED OF SOB. O2 SAT AT 91. WILL CONTINUE TO MONITOR.
--- NOTE | 2021-08-14 02:32 | NUR ---
PT ASLEEP. PT ON 2L O2 VIA NC.VISIBLE CHEST RISE AND FALL NOTED. ALL PRECAUTIONS IN PLACE.CALL LIGHT WITHIN REACH. WILL CONTINUE TO MONITOR.
--- NOTE | 2021-08-14 07:38 | NUR ---
PT IS STABLE. ENDORSED TO AM SHIFT NURSE FOR CONTINUITY OF CARE.
--- NOTE | 2021-08-14 07:39 | NUR ---
RECEIVED REPORT FROM MORTICIAN HELPER NURSE FOR CONTINUITY OF CARE. PT IN BED SLEEPING AT THIS TIME. RESPIRATIONS ARE EVEN AND UNLABORED ON ROOM AIR. NO SIGNS OF DISTRESS NOTED. PT IS ALERT AND ORIENTED X4 ABLE TO VERBALIZE NEEDS, ABLE TO FOLLOW COMMANDS. SKIN IS WARM, DRY, AND INTACT. NO COMPLAINTS OF PAIN OR DISCOMFORT NOTED. CALL LIGHT WITHIN REACH. ALL SAFETY MEASURES IN PLACE. WILL CONTINUE TO MONITOR.
[2021-08-14 08:00] VITALS: BP 104/78
[2021-08-14] MEDS ORDERED: NON-FORMULARY ITEM (Lactulose 30 ML) PO SCH (09:00)
[2021-08-14] MEDS: carvediloL 3.125 MG TAB PO SCH ×2 (09:00→21:30)
[2021-08-14] MEDS: ASPIRIN 81 MG TAB.CHEW PO SCH (09:19)
[2021-08-14] MEDS: LACTULOSE 20 GM/30 ML UDC PO SCH ×3 (09:19→17:26)
[2021-08-14] MEDS: PANTOPRAZOLE 40 MG TABEC PO SCH (09:20)
[2021-08-14] MEDS: FUROSEMIDE 40 MG TAB PO SCH ×2 (09:20→21:30)
[2021-08-14] MEDS: ASCORBIC ACID 500 MG TAB PO SCH (09:20)
--- NOTE | 2021-08-14 09:23 | NUR ---
ADMINISTERED SCHEDULED MEDICATIONS. MEDICATION HYDRALAZINE HELD AT THIS TIME. PT TOLERATED WELL. WILL CONTINUE TO MONITOR. Addendum: 08/14/21 at 1226 by Marianela Nicole LVN MEDICATION HELD WAS COREG, NOT HYDRALAZINE.
[2021-08-14] MEDS: NICOTINE TRANSD SYS 14 MG/24 HR PATCH TD SCH (09:57)
--- NOTE | 2021-08-14 10:46 | NUR ---
PATIENT HAS BEEN SCREENED AND CATEGORIZED MODERATE NUTRITION RISK. PATIENT WILL BE SEEN WITHIN 3-5 DAYS OF ADMISSION. VERONICA ROBLEDO RD
--- NOTE | 2021-08-14 11:02 | NUR ---
DC PLANNING: ORDER RECEIVED FOR HOSPICE, ORDER AND CLINICAL PACKET FAXED TO THE PATIENTS INSURANCE PROM FOR APPROVAL AND DIRECTION ON REFERRAL. CM WILL FOLLOW. Addendum: 08/14/21 at 1318 by Dawna Pope CM DC PLANNING: PER TOMEKA DAVALOS FOR PROMED IPA, THE PATIENT DOESN'T HAVE [employer] PLACEMENT BENEFITS. [facility] ([phone]) IS THE CONTRACTED AGENCY FOR HIS INSURANCE, CM FAXED ORDERS AND CLINICAL PACKET TO THEM. ALSO ASKED FOR Judit YIN FOR POSSIBLE SHORT TERM SNF PLACEMENT. CM WILL FOLLOW. Addendum: 08/14/21 at 1538 by Dawna Pope CM DC PLANNING: THE PATIENT READMITTED WITHIN LESS THAN 24 HOURS WITH C/O SOB AND CHEST PAIN, H/O CHF, CIRRHOSIS, ASCITES, HTN AND SUBSTANCE ABUSE. CR 1.4, BNP 1500, TOTAL BILI 1.2, AST 56. ON 4 L NC, LACTULOSE, LASIX BID ATIVAN AND MORPHINE. TOMEKA SPOKE WITH [facility], PATIENT IS BEING REVIEWED BY THEIR DIRECTOR. TOMEKA EXPLAINED NEED FOR PLACEMENT, [facility] STATED THAT TOMEKA SHOULD GO THROUGH HIS M/RAH FOR THIS. TOMEKA SPOKE WITH THE PATIENT AT BEDSIDE, HE STATES THAT HE WAS DRIVING TO [facility] BUT BECAME TOO SHORT OF BREATH. PATIENT STATES HIS SISTER WORKS AT [facility] BUT THEY HAVEN'T SPOKEN IN A LONG. PATIENT WAS VERY EMOTIONAL DURING THE CONVERSATION AND STATED THAT HE MISSES HIS SISTER. ALSO STATES THAT HE SEES AND FEELS BUGS INSIDE AND OUTSIDE AND KNOWS THAT THEY AREN'T THERE AND THAT HE IS MISERABLE IN PART BECAUSE OF THIS. PATIENT CRYING AND ASKING IF HE WAS GOING TO BE DISCHARGED TODAY, TOMEKA EXPLAINED CURRENT DC PLAN AND BARRIERS TO PLACEMENT. ENCOURAGED THE PATIENT TO CALL HIS SISTER TO LET HER KNOW THAT HE'S NOT DOING WELL, TOMEKA ALSO ASKED IF THE PATIENT WOULD LIKE SOMEONE FROM A CENTER OF HIS CAMMY VISIT HIM. HE STATES HE'S BUDDHIST AND ASKED IF THE [facility] ON [facility] COULD BE CALLED. TOMEKA THEN SPOKE WITH DEE HER FROM THE [facility] AND EXPLAINED THE SITUATION. DEE STATES HE WILL VISIT THE PATIENT AND WILL ALSO INFORM THE BUDDHIST COMMUNITY. DEE ASKED THAT HOSPITAL AND PATIENT ROOM # BE PROVIDED WELL VISITING HOURS, TOMEKA ASKED THE PATIENT FOR PERMISSION TO DO THIS AND PERMISSION WAS GIVEN. TOMEKA WILL SPEAK WITH [facility] TO DISCUSS OPTIONS FOR [employer] PLACEMENT AND WILL FOLLOW FOR NEEDS. Addendum: 08/14/21 at 1554 by Dawna Pope CM DC PLANNING: TOMEKA SPOKE WITH MANUEL FROM [facility], SHE STATES THAT SHE IS WILLING TO LOOK FOR PLACEMENT USING THE PATIENTS PRIMARY INSURANCE [employer] AND IS FAMILIAR WITH WORKING WITH THEM. PACKET FAXED TO MANUEL, TOMEKA WILL FOLLOW. Addendum: 08/15/21 at 1148 by Dawna Pope CM DC PLANNING: NO RESPONSE FROM [facility] IN TERMS OF ACCEPTANCE. [facility] CONTINUES TO WORK ON PLACEMENT AT SNF UNDER HOSPICE. TOMEKA WILL FOLLOW. Addendum: 08/16/21 at 0810 by Dawna Pope CM DC PLANNING: TOMEKA SPOKE WITH ANOOP AT [facility] REGARDING DC PLANNING AND DIFFICULTY WITH PATIENT PLACEMENT UNDER HOSPICE. ANOOP STATES THAT THE [facility] HAS BEEN SPEAKING WITH GARRY STEIN BECAUSE OF THE FREQUENCY OF THE PATIENTS HOSPITAL ADMISSIONS, SHE WILL ASK THE TO CALL CM TO PROVIDE THE [facility] CONTACT AND WILL ALSO RAISE THE ISSUE OF PLACEMENT AT THEIR DAILY MEETING TODAY. TOMEKA WILL FOLLOW. Addendum: 08/16/21 at 1107 by Dawna Pope CM DC PLANNING: TOMEKA SPOKE WITH DEE FROM THE [facility], HE WILL REFER THE PATIENT TO [facility] ([phone]) WHICH ASSISTS WITH FINDING LODGINGS FOR THE HOMELESS. DEE WILL ALSO REACH OUT TO THE PATIENTS STEP BROTHSAMAN CALDERON REGARDING A PLACE TO STAY. EXPRESSED CONCERN ABOUT THE POTENTIAL FOR THE PATIENT TO RELAPSE WITH DRUG USE AND EFFECT ON PATIENTS FAMILY AND BUDDHIST COMMUNITY IF SOMEONE TAKES RESPONSIBILITY FOR THE PATIENT BUT WILL CONTINUE TO TRY TO ASSIST THE PATIENT. SW WILL FOLLOW UP WITH [facility] IN [place] TO SEE IF THEY HAVE A BED FOR THE PATIENT. TOMEKA WILL FOLLOW. Addendum: 08/19/21 at 1214 by Dawna Pope CM DC PLANNING: CM SPOKE WITH THE PATIENT AT BEDSIDE TO LET HIM KNOW THAT THERE ARE NO ACCEPTING FACILITIES OR OTHER POTENTIAL RESIDENCES THAT HAVE ACCEPTED HIM. ENDORSED THAT [facility] HAS BEEN CALLED TO CHECK ON BED AVAILABILITY, CM IS WAITING FOR A RETURN CALL REGARDING THIS. CM WILL FOLLOW. Addendum: 08/19/21 at 1232 by Dawna Pope CM DC PLANNING: CM SPOKE WITH THE PATIENT AT BEDSIDE TO LET HIM KNOW THAT HE HAS NOT BEEN ACCEPTED TO ANY FACILITIES APPROACHED BY HOSPICE. CM RECOMMENDED THAT THE PATIENT F/U WITH DEE FROM THE [facility], ALSO ENDORSED THAT CM CALLED [facility] [place] TO SEE IF THEY HAVE AN OPENING FOR HIM, CM IS WAITING FOR A CALL BACK FROM THEM. THE PATIENT IS DC'D TODAY, HAS BEEN GIVEN HOMELESS RESOURCES. CM WILL FOLLOW.
--- NOTE | 2021-08-14 11:12 | NUR ---
PT STATES HE FEELS LIKE "BUGS ARE CRAWLING ALL OVER ME". PT IS ASKING FOR ANTI-ANXIETY MEDICATIONS WELL MORPHINE. INFORMED PT THAT I WILL ASK MD AND FOLLOW UP. WILL CONTINUE TO MONITOR.
--- NOTE | 2021-08-14 12:17 | NUR ---
WENT TO DO ROUNDS ON PT. PT SLEEPING AT THIS TIME. RESPIRATIONS ARE EVEN AND UNLABORED. WILL CONTINUE TO MONITOR.
--- NOTE | 2021-08-14 15:45 | NUR ---
PT CALLED AND ASKED FOR PUDDING AND SOME SNACKS. GAVE PT PUDDING AND SOME APPLE JUICE. ASKED PT IF HE NEEDED ANYTHING ELSE. PT STATES HE IS "OK JUST TIRED". WILL CONTINUE TO MONITOR.
[2021-08-14 16:00] VITALS: BP 114/84
--- NOTE | 2021-08-14 19:01 | NUR ---
ENDORSED PT TO OUTSIDE PLANT SUPERVISOR NURSE FOR CONTINUITY OF CARE. PT IS STABLE.
--- NOTE | 2021-08-14 19:05 | NUR ---
RECEIVED REPORT FROM AM NURSE FOR CONTINUITY OF CARE. PT IS AWAKE ON RM AIR WITH NO SIGNS OF DISTRESS AT THIS TIME. PT IS AMBULATORY. IV SITE 20 G IN RAC S.L. SKIN IS INTACT. PLAN OF CARE DISCUSSED . WILL CONTINUE TO MONITOR.
--- NOTE | 2021-08-14 21:00 | NUR ---
HS MEDS GIVEN. PT IS VERY NEEDY. WILL NOT KEEP O2 ON. REFUSES TO WEAR NON SKID SOCKS. PT IS AMBULATORY. PT IS UP TO BATHROOM THEN SITTING IN CHAIR, CALLS FOR ASSISTANCE. WHILE UP WALKING HAS BUMPED R URIBE.SCAB IS OFF AND BLEEDING. CLEANED WITH NS, PAINTED AREA WITH BETADINE AND WRAPPED R LE WITH KERLIX. PT IS ALWAYS ASKING FOR FOOD , OR CRYING OUT HE CAN'T BREATHE OR NO ONE HAS CHANGED HIS BED, OR HASN'T HAD A SHOWER IN DAYS. PT SET UP FOR QUICK SPONGE BATH. GOWN AND BED LINEN WERE CHANGED. SNACKS GIVEN. ALL SAFETY MEASURES IN PLACE. CALL LIGHT WITHIN REACH. WILL CONTINUE TO MONITOR.
[2021-08-15] VITALS: BP 108/72
--- NOTE | 2021-08-15 01:00 | NUR ---
PT MOANING AND ANXIOUS. ATTEMPTED GIVING ATIVAN 1MG IVP. RAC IV 20G INFILTRATED. NEW IV INSERTED ON 2ND ATTEMPT BY OMKAR RN IV 22G TO RFA. ATIVAN THEN GIVEN. PT SLEPT ABOUT 2.5 HRS THIS SHIFT. ALL SAFETY MEASURES IN PLACE. CALL LIGHT WITHIN REACH. WILL CONTINUE WITH FREQ ROUNDS.
[2021-08-15] MEDS: LORazepam 2 MG/ML VIAL IM/IVP PRN ×2 (01:01→16:29)
--- NOTE | 2021-08-15 07:15 | NUR ---
ENDORSED PT REPORT TO AM NURSE FOR CONTINUITY OF CARE. PT IS STABLE, SLEEPING. RR EVEN AND UNLABORED WITH EQUAL CHEST RISE. NAD.
[2021-08-15 08:00] VITALS: BP 103/77
--- NOTE | 2021-08-15 08:00 | NUR ---
Patient's Plan of Care was discussed and reviewed with TELEVISION PRODUCTION ASSISTANT: CANDELARIA WALDRON
[2021-08-15] MEDS: PANTOPRAZOLE 40 MG TABEC PO SCH (09:23)
[2021-08-15] MEDS: ASPIRIN 81 MG TAB.CHEW PO SCH (09:23)
[2021-08-15] MEDS: LACTULOSE 20 GM/30 ML UDC PO SCH ×3 (09:23→16:20)
[2021-08-15] MEDS: ASCORBIC ACID 500 MG TAB PO SCH (09:23)
[2021-08-15] MEDS: carvediloL 3.125 MG TAB PO SCH ×2 (09:24→21:23)
[2021-08-15] MEDS: FUROSEMIDE 40 MG TAB PO SCH (09:24)
[2021-08-15] MEDS: NICOTINE TRANSD SYS 14 MG/24 HR PATCH TD SCH (09:25)
--- NOTE | 2021-08-15 09:32 | NUR ---
GIVEN ALL DUE MEDICATION TOLERATED WELL.
--- NOTE | 2021-08-15 11:00 | NUR ---
SEEN BY DR. ARMAS AND EVALUATED PT.
[2021-08-15] MEDS: MORPHINE SULFATE 2 MG/ML SYR IVP PRN ×2 (12:23→23:17)
--- NOTE | 2021-08-15 12:25 | NUR ---
COMPLAIN OF PAIN MEDICATED ORDER GIVEN BY RN.
[2021-08-15] MEDS ORDERED: LACTULOSE 20 GM/30 ML UDC PO SCH (13:00)
--- NOTE | 2021-08-15 13:30 | NUR ---
PATIENT COMPLAIN OF NAUSEA INFORM DR. ARMAS WAITING FOR RESPONSE.
--- NOTE | 2021-08-15 15:09 | NUR ---
DC PLANNING PATIENT IS A 45 YR OLD MALE WHO PRESENTED TO [facility] ON 08/13 FOR COMPLAINTS OF SOB AND CHEST PAIN. PATIENT HAS HX OF CHF, SUBSTANCE USE COPD AND CARDIAC D/O. [facility] MET WITH PATIENT AT BEDSIDE TO GATHER COLLATERAL INFORMATION. PATIENT REPORTS RECENTLY RESIDING AT THE ADDRESS ON FILE; A SOBER LIVING HOME FOR 6 MONTHS, HOWEVER, PATIENT LOST BED DUE TO PROLONGED HOSPITAL STAYS. PATIENT REPORTS LIVING IN HIS CAR. SW OFFERED PATIENT HOMELESS AND EMERGENCY ASSISTANCE RESOURCES, WHICH PATIENT DECLINED. PATIENT REPORTS EMERGENCY CONTACT JOSEPH DIGGS (NEEL) [phone]. PATIENT DENIED HAVING AD IN PLACE AND DECLINED AD PACKET OFFERED BY [facility]. PATIENT REPORTS BEING AMBULATORY AND DENIES USE OF DME. PATIENT REPORTS RECEIVING MEDICATION FROM [facility] IN [place], WHEN NEEDED. PATIENT DENIED HX OF DIALYSIS OR HH. [facility] INQUIRED ON SUBSTANCE USE HX CLIENT TESTED POSITIVE FOR AMPHETAMINE, OPIATE USE.PATIENT ADMITS TO SUBSTANCE USE, HOWEVER DECLINED TO PROVIDE ADDITIONAL HX ON SA. [facility] OFFERED PATIENT SUBSTANCE USE RESOURCES, HOWEVER, PATIENT DECLINED. PATIENT IS AWARE CM IS LOOKING FOR HOSPICE PLACEMENT. PATIENT REPORTED TO FAHAD THAT HE WAS HAVING VISITORS MEETING WITH HIM AND WAS FEELING LESS LONELY THAN PREVIOUSLY REPORTED. SW WILL CONTINUE TO FOLLOW, NEEDED.
[2021-08-15] MEDS ORDERED: ONDANSETRON 4 MG TAB PO PRN (16:05)
--- NOTE | 2021-08-15 16:06 | NUR ---
DR. ARMAS RESPONDED FOR ZOFRAN 4 MG PRN q6.
--- NOTE | 2021-08-15 16:21 | NUR ---
GIVEN ZOFRAN AND LACTULOSE FOR COMPLAIN OF NAUSEA. PATIENT COMPLAIN OF ANXIETY AND ASKING FOR ATIVAN.
--- NOTE | 2021-08-15 19:30 | NUR ---
GAVE REPORT TO PHOTOVOLTAIC POWER SYSTEMS ENGINEER NURSE FOR CONTINUITY OF CARE.
[2021-08-15 20:00] VITALS: BP 106/77
[2021-08-15] MEDS: FUROSEMIDE 20 MG/2 ML VIAL IVP SCH (21:23)
--- NOTE | 2021-08-16 07:10 | NUR ---
RECEIVED REPORT FROM VP OF DIGITAL MARKETING NURSE FOR CONTINUITY OF CARE. PT IN BED SLEEPING AT THIS TIME. RESPIRATIONS ARE EVEN AND UNLABORED ON ROOM AIR. NO SIGNS OF DISTRESS NOTED. PT IS ALERT AND ORIENTED X4 ABLE TO VERBALIZE NEEDS, ABLE TO FOLLOW COMMANDS. PT ABLE TO AMBULATE TO REST ROOM INDEPENDENTLY. SKIN IS WARM, DRY, AND INTACT. PT HAS IV TO R AC, 20G, SALINE LOCKED. NO COMPLAINTS OF PAIN OR DISCOMFORT NOTED. CALL LIGHT WITHIN REACH. ALL SAFETY MEASURES IN PLACE. WILL CONTINUE TO MONITOR.
[2021-08-16 07:34] LABS: BASOPHILS # (AUTO) 0.1 K/uL (0.00-0.22); BASOPHILS % (AUTO) 1.3 % (0.0-2.0); EOSINOPHILS # (AUTO) 0.2 K/uL (0-0.4); EOSINOPHILS % (AUTO) 2.6 % (0.0-4.0); HEMOGLOBIN 10.2 g/dL (12.0-18.0); LYMPHOCYTES # (AUTO) 1.4 K/uL (2.0-11.5); LYMPHOCYTES % (AUTO) 18.8 % (20.5-51.1); MEAN CORPUSCULAR HEMOGLOBIN 22 pg (27-31); MEAN CORPUSCULAR HGB CONC 31 g/dL (33-37); MEAN CORPUSCULAR VOLUME 70.8 fL (80-94); MONOCYTES # (AUTO) 0.6 K/uL (0.8-1.0); MONOCYTES % (AUTO) 8.2 % (1.7-9.3); NEUTROPHILS # (AUTO) 5.3 K/uL (1.8-7.7); NEUTROPHILS % (AUTO) 69.1 % (42.2-75.2); PLATELET COUNT (AUTO) 251 K/uL (140-450); RED BLOOD CELL COUNT(AUTO) 4.67 MIL/uL (4.20-6.10); RED CELL DISTRIBUTION WIDTH 22.5 % (11.6-13.7); WHITE BLOOD COUNT (AUTO) 7.7 K/uL (4.8-10.8)
[2021-08-16 08:00] VITALS: BP 107/79
--- NOTE | 2021-08-16 08:00 | NUR ---
Patient's Plan of Care was discussed and reviewed with [employer] SUPERVISOR: JANINE ROBERTSON
[2021-08-16] MEDS: FUROSEMIDE 20 MG/2 ML VIAL IVP SCH ×2 (09:00→21:45)
[2021-08-16] MEDS: PANTOPRAZOLE 40 MG TABEC PO SCH (09:12)
[2021-08-16] MEDS: ASPIRIN 81 MG TAB.CHEW PO SCH (09:12)
[2021-08-16] MEDS: carvediloL 3.125 MG TAB PO SCH ×2 (09:13→21:01)
[2021-08-16] MEDS: ASCORBIC ACID 500 MG TAB PO SCH (09:13)
[2021-08-16] MEDS: LACTULOSE 20 GM/30 ML UDC PO SCH ×3 (09:14→17:06)
--- NOTE | 2021-08-16 09:15 | NUR ---
ADMINISTERED ALL SCHEDULED MEDICATIONS. EDUCATED PT ON MEDS ADMINISTERED. PT VERBALIZED UNDERSTANDING. WILL CONTINUE TO MONITOR.
[2021-08-16] MEDS: NICOTINE TRANSD SYS 14 MG/24 HR PATCH TD SCH (09:22)
--- NOTE | 2021-08-16 12:50 | NUR ---
DID ROUNDS ON PT. PT IN BED SLEEPING AT THIS TIME. RESPIRATIONS ARE EVEN AND UNLABORED. NO SIGNS OF DISTRESS NOTED. WILL CONTINUE TO MONITOR.
[2021-08-16] MEDS: LORazepam 2 MG/ML VIAL IM/IVP PRN (15:34)
--- NOTE | 2021-08-16 15:34 | NUR ---
PT CALLED AND STATED HE WAS FEELING VERY ANXIOUS. ASKING FOR SOMETHING TO "HELP CALM ME DOWN". INFORMED RN. RN ADMINISTERED ATIVAN. WILL CONTINUE TO MONITOR.
[2021-08-16 16:00] VITALS: BP 109/72
--- NOTE | 2021-08-16 16:36 | NUR ---
WENT TO CHECK ON PT. PT RESTING AT THIS TIME. RESPIRATIONS ARE EVEN AND UNLABORED. NO SIGNS OF DISTRESS NOTED. WILL CONTINUE TO MONITOR.
--- NOTE | 2021-08-16 16:47 | NUR ---
PHYSICAL THERAPY CO-SIGN The Physical Therapy Progress Notes documented by Logistics Officer have been reviewed. Reviewed/Co-Signed by: Sharmaine River Documentation Done by: ABIGAIL RANGEL PTA Addendum: 08/16/21 at 1647 by Sharmaine River PT Amended: Links added.
--- NOTE | 2021-08-16 19:10 | NUR ---
ENDORSED PT TO GAS OR WATER METER INSTALLER NURSE, YAO ABDI, FOR CONTINUITY OF CARE. PT IS STABLE.
--- NOTE | 2021-08-16 19:11 | NUR ---
RECEIVED ENDORSEMENT FROM TRINIDAD MEHTA. STABLE AND AWAKE. A&OX4 VERBALLY RESPONSIVE AND ABLE TO COMMUNICATE NEEDS. ON 4L VIA NC WITH NO APPARENT S/SX OF ACUTE DISTRESS. RESPIRATIONS EVEN AND UNLABORED. PATIENT IS AMBULATORY. SKIN IS INTACT. PATIENT IS CONTINENT OF VOID AND BM. IV SITE TO RAC20G IS INTACT/PATENT SL. PLAN OF CARE AND WHITE COMMUNICATION BOARD UPDATED. ALL SAFETY MEASURES IN PLACE. BED IN LOW/LOCKED POSITION. CALL LIGHT WITHIN REACH. WILL CONTINUE TO MONITOR.
[2021-08-16 20:00] VITALS: BP 119/69
--- NOTE | 2021-08-16 20:00 | NUR ---
REVIEWED PLAN OF CARE WITH YAO GELLER LVN. [id number]
--- NOTE | 2021-08-16 21:05 | NUR ---
ADMINISTERED SCHEDULED MEDICATIONS PER MD ORDER. TOLERATED WELL. PATIENT STATES 8/10 ABDOMINAL PAIN. WILL ENDORSE TO ULISES KENDALL FOR IV PRN COVERAGE.. RESPIRATIONS EVEN AND UNLABORED WITH NO APPARENT S/SX OF ACUTE DISTRESS. WHITE COMMUNICATION BOARD UPDATED. ALL SAFETY MEASURES IN PLACE. CALL LIGHT WITHIN REACH. WILL CONTINUE TO MONITOR.
[2021-08-16] MEDS: MORPHINE SULFATE 2 MG/ML SYR IVP PRN (21:48)
[2021-08-16 23:06] LABS: ANION GAP 18.3 (8-16); CARBON DIOXIDE 24.1 mmol/L (21-32); CREATININE 1.7 mg/dL (0.6-1.3); POTASSIUM 4.4 mmol/L (3.5-5.1)
--- NOTE | 2021-08-17 01:10 | NUR ---
ANSWERED CALL LIGHT. PATIENT C/O FEELING ANXIOUS. WILL ENDORSE TO ULISES KENDALL FOR PRN IVP COVERAGE. DENIES PAIN. RESPIRATIONS EVEN AND UNLABORED WITH NO APPARENT S/SX OF ACUTE DISTRESS. WHITE COMMUNICATION BOARD UPDATED. ALL SAFETY MEASURES IN PLACE. CALL LIGHT WITHIN REACH. WILL CONTINUE TO MONITOR.
[2021-08-17] MEDS: LORazepam 2 MG/ML VIAL IM/IVP PRN ×2 (01:54→15:12)
--- NOTE | 2021-08-17 03:10 | NUR ---
CHECKED PATIENT. PATIENT IS STABLE AND ASLEEP. CHEST IS RISING AND FALLING EVENLY. RESPIRATIONS EVEN AND UNLABORED WITH NO APPARENT S/SX OF ACUTE DISTRESS. WHITE COMMUNICATION BOARD UPDATED. ALL SAFETY MEASURES IN PLACE. CALL LIGHT WITHIN REACH. WILL CONTINUE TO MONITOR.
[2021-08-17 04:00] VITALS: BP 110/65
--- NOTE | 2021-08-17 05:00 | NUR ---
ANSWERED CALL LIGHT. PROVIDED PRUNE JUICE PER PATIENT REQUEST. PATIENT STATES HE WAS ABLE TO GET QUALITY SLEEP. DENIES PAIN. RESPIRATIONS EVEN AN UNLABORED WITH NO APPARENT S/SX OF ACUTE DISTRESS. ALL NEEDS MET AT THIS TIME. WHITE COMMUNICATION BOARD UPDATED. ALL SAFETY MEASURES IN PLACE. CALL LIGHT WITHIN REACH. WILL CONTINUE TO MONITOR.
--- NOTE | 2021-08-17 07:21 | NUR ---
ENDORSED PATIENT TO TRINIDAD GAONA FOR CONTINUITY OF CARE. PATIENT IS STABLE.
--- NOTE | 2021-08-17 07:22 | NUR ---
RECEIVED REPORT FROM TRAINING EXECUTIVE NURSE FOR CONTINUITY OF CARE. PATIENT ASLEEP ON ROOM AIR RESPIRATION EVEN AND NOT LABORED, PATIENT WITH ORDER FOR O2 AT 2L/MIN BUT KEEP ON REMOVING IT O2 SAT AT 96-98% AT ROOM AIR. NOTED ABDOMEN ROUND AND DISTENDED. BOTH LOWER LEG WITH EDEMA ENCOURAGE TO ELEVATE. CALL LIGHT WITH IN EASY REACH.
[2021-08-17] MEDS: ALBUTEROL SULFATE/IPRATROPIU 3 ML SOL IH PRN (08:59)
[2021-08-17] MEDS: ASPIRIN 81 MG TAB.CHEW PO SCH (09:49)
[2021-08-17] MEDS: ASCORBIC ACID 500 MG TAB PO SCH (09:49)
[2021-08-17] MEDS: NICOTINE TRANSD SYS 14 MG/24 HR PATCH TD SCH (09:49)
[2021-08-17] MEDS: PANTOPRAZOLE 40 MG TABEC PO SCH (09:50)
[2021-08-17] MEDS: carvediloL 3.125 MG TAB PO SCH ×2 (09:50→21:39)
[2021-08-17] MEDS: LACTULOSE 20 GM/30 ML UDC PO SCH ×3 (09:50→16:43)
--- NOTE | 2021-08-17 09:56 | NUR ---
GIVEN ALL DUE MEDICATION TOLERATED WELL BUT, PATIENT COMPLAIN OF PAIN INFORM RN WHO WILL GIVE LASIX AND I PULLED MORPHINE RN LITA WILL GIVE IVP MEDICATION.
[2021-08-17] MEDS: FUROSEMIDE 20 MG/2 ML VIAL IVP SCH ×2 (10:08→21:39)
[2021-08-17] MEDS: MORPHINE SULFATE 2 MG/ML SYR IVP PRN ×2 (10:09→16:45)
--- NOTE | 2021-08-17 12:00 | NUR ---
PATIENT ON BED RESTING WITH CALL ALIGHT WITH IN EASY REACH.
--- NOTE | 2021-08-17 14:00 | NUR ---
PATIENT ASLEEP NO DISTRESS NOTED. ON ROOM AIR RESPIRATION EVEN AND NOT LABORED.
--- NOTE | 2021-08-17 15:09 | NUR ---
PATIENT COMPLAIN OF ANXIETY ASKING FOR HIS ATIVAN REMOVED AND GAVE TO RN.
[2021-08-17 15:29] LABS: ANION GAP 11.6 (8-16); CREATININE 1.6 mg/dL (0.6-1.3); POTASSIUM 4.6 mmol/L (3.5-5.1)
[2021-08-17 16:00] VITALS: BP 107/71
--- NOTE | 2021-08-17 16:50 | NUR ---
PATIENT COMPLAIN OF PAIN MEDICATED ORDER. GIVEN BY RN.
--- NOTE | 2021-08-17 19:15 | NUR ---
PATIENT ASLEEP NO DISTRESS NOTED. GAVE REPORT TO BULB WEEDER NURSE FOR CONTINUITY OF CARE.
--- NOTE | 2021-08-17 19:55 | NUR ---
RECD. REPORT FROM ENOCH CHERY FOR CONTINUITY OF CARE. PATIENT RESTING IN BED, AWAKE, A/OX4. RESPIRATION EVEN AND UNLABORED. IV SALINE LOCK AT THE [facility] AC G20, PATENT AND INTACT. ABDOMEN WITH DISTENSION. LEFT SIDE WITH SMALL DRESSING, SITE OF PARACENTESIS NOTED TO BE DRY AND CLEAN. ABLE TO AMBULATE TO THE BR. DENIES PAIN 0/10.
[2021-08-17 20:00] VITALS: BP 106/76
--- NOTE | 2021-08-17 20:00 | NUR ---
Patient's Plan of Care was discussed and reviewed with TRINIDAD POWERS.
--- NOTE | 2021-08-17 21:23 | NUR ---
PT SLEEPING COMFORTABLY ON RA W/ NO DISTRESS NOTED WILL CONTINUE TO MONITOR
--- NOTE | 2021-08-17 21:40 | NUR ---
SCHEDULED MEDICATIONS GIVEN. PT SITTING AT BEDSIDE. PT TOLERATED WELL. WILL CONTINUE TO MONITOR.
--- NOTE | 2021-08-17 22:00 | NUR ---
SITTING ON CHAIR. WATCHING TV. NO APPARENT DISTRESS NOTED.
[2021-08-18] VITALS: BP 108/79
[2021-08-18] MEDS: LORazepam 2 MG/ML VIAL IM/IVP PRN ×2 (00:19→06:44)
--- NOTE | 2021-08-18 00:19 | NUR ---
WITH ANXIETY, MEDICATED WITH ATIVAN PER MD ORDER BY ENOCH PARRA.
--- NOTE | 2021-08-18 00:30 | NUR ---
PATIENT SHOUTED. FOUND SITTING ON BED, HOLDING HIS 02 BROKEN 0XYGEN CANNULA. REPLACED WITH A NEW ONE. PUDDING GIVEN REQUESTED.
--- NOTE | 2021-08-18 02:30 | NUR ---
SLEEPING COMFORTABLY IN BED. RESPIRATION EVEN AND UNLABORED.
--- NOTE | 2021-08-18 04:30 | NUR ---
SITTING ON BED ASLEEP. NO RESPIRATORY DISTRESS NOTED.
--- NOTE | 2021-08-18 05:45 | NUR ---
OFF 02 CANNULA, AIDA KENDALL PUT BACK 02 CANNULA. RESPIRATORY STATUS STABLE.
--- NOTE | 2021-08-18 06:44 | NUR ---
WITH ANXIETY, MEDICATED WITH ATIVAN PER MD ORDER BY AIDA KENDALL.
--- NOTE | 2021-08-18 07:05 | NUR ---
RECEIVED REPORT FROM ATTIC FANS MECHANIC NURSE FOR CONTINUITY OF CARE. PATIENT ASLEEP RESPIRATION EVEN AND NOT LABORED ON 3L/MIN O2. IV SITE ON RIGHT AC PEPITO 20. ALL SAFETY MEASURE IN PLACE.
--- NOTE | 2021-08-18 07:20 | NUR ---
CHECKED PATIENT, NO ANXIETY NOTED. SLEEPING COMFORTABLY IN BED. ENDORSED TO AM SHIFT NURSE FOR CONTINUITY OF CARE.
[2021-08-18 08:00] VITALS: BP 110/79
[2021-08-18] MEDS: FUROSEMIDE 20 MG/2 ML VIAL IVP SCH ×2 (08:52→20:27)
[2021-08-18] MEDS: ASPIRIN 81 MG TAB.CHEW PO SCH (09:24)
[2021-08-18] MEDS: carvediloL 3.125 MG TAB PO SCH ×2 (09:24→21:43)
[2021-08-18] MEDS: ASCORBIC ACID 500 MG TAB PO SCH (09:24)
[2021-08-18] MEDS: NICOTINE TRANSD SYS 14 MG/24 HR PATCH TD SCH (09:25)
[2021-08-18] MEDS: PANTOPRAZOLE 40 MG TABEC PO SCH (09:25)
[2021-08-18] MEDS: LACTULOSE 20 GM/30 ML UDC PO SCH ×3 (09:25→16:30)
--- NOTE | 2021-08-18 09:29 | NUR ---
PATIENT GIVEN HIS DUE MEDICATION AND PATIENT COMPLAIN OF PAIN RN GAVE MORPHINE. IVP. CALL LIGHT WITH IN EASY REACH.
[2021-08-18] MEDS: MORPHINE SULFATE 2 MG/ML SYR IVP PRN ×3 (09:30→20:27)
[2021-08-18] MEDS: ALBUTEROL SULFATE/IPRATROPIU 3 ML SOL IH PRN (10:22)
--- NOTE | 2021-08-18 10:24 | NUR ---
PATIENT COMPLAINED OF SHORTNESS OF BREATH, ASKED FOR BREATHING TREATMENT. WHEN I ENTERED THE ROOM THE PATIENT HAD REMOVED HIS NASAL CANNULA AND WAS SATURATING 98% ON ROOM AIR, PATIENT SAID HE HAD TAKEN THE CANNULA OFF AN HOUR AGO. FOLLOWING BREATHING TREATMENT PT, THE NASAL CANNULA WILL BE REMOVED. PT SATURATIONS ON ROOM AIR MAINTAIN ABOVE 95%. NASAL CANNULA WILL REMAIN AT BEDSIDE, WILL CONTINUE TO MONITOR
--- NOTE | 2021-08-18 12:30 | NUR ---
PATIENT SITTING AT EDGE OF BED EATING LUNCH. CALL LIGHT WITH IN EASY REACH. ON ROOM AIR REMINDED TO PUT O2 BUT PATIENT SAID LATER I'M OKAY RIGHT NOW.
--- NOTE | 2021-08-18 13:30 | NUR ---
PATIENT ASKING FOR MORPHINE I TOLD HIM IT'S NOT DUE YET OFFERED NORCO BUT HE REFUSED STATED I JUST GOING TO WAIT.
--- NOTE | 2021-08-18 14:30 | NUR ---
PATIENT ASLEEP NO DISTRESS NOTED.
--- NOTE | 2021-08-18 15:25 | NUR ---
PATIENT CALLED ASKING FOR PAIN MEDICATION INFORM RN FOR REQUEST OF MORPHINE.
--- NOTE | 2021-08-18 15:41 | NUR ---
08/18/2021 RD INITIAL ASSESSMENT COMPLETED. PLEASE REFER TO NUTRITION ASSESSMENT UNDER CARE ACTIVITY FOR ESTIMATED NUTRITIONAL NEEDS. 1. CONTINUE WITH RENAL DIET. 2. MONITOR PO INTAKE. 3. RD TO FOLLOW-UP IN 3-5 DAYS PATIENT IS MODERATE RISK. CASEY MCQUEEN, RD
--- NOTE | 2021-08-18 15:45 | NUR ---
DR. ARMAS AT BED SIDE.
[2021-08-18 16:00] VITALS: BP 104/73
--- NOTE | 2021-08-18 18:00 | NUR ---
PATIENT ON BED EATING DINNER. CALL ALIGHT WITH IN EASY REACH.
--- NOTE | 2021-08-18 19:22 | NUR ---
GAVE REPORT TO BOLT SORTER NURSE FOR CONTINUITY OF CARE.
--- NOTE | 2021-08-18 19:23 | NUR ---
RECD. RESTING IN BED, AWAKE, A/OX4. RESPIRATION EVEN AND UNLABORED. 0N 02 AT 3 LITERS A N/C. IV SALINE LOCK AT THE RIGHT FOREARM G22 PATENT AND INTACT. ABDOMEN WITH DISTENSION, HAVING REGULAR BOWEL MOVEMENT. AMBULATORY TO THE BATHROOM. DENIES PAIN 0/10.
--- NOTE | 2021-08-18 21:43 | NUR ---
RESTING IN BED, SCHEDULED MEDICATIONS ADMINISTERED. GIVEN PUDDING REQUESTED.
[2021-08-19] VITALS: BP 105/80
--- NOTE | 2021-08-19 | NUR ---
SLEEPING COMFORTABLY IN BED, RESPIRATION EVEN AND UNLABORED. CALL LIGHT IN REACH.
--- NOTE | 2021-08-19 01:00 | NUR ---
SITTING ON BED, REMINDED TO PUT ON 02 CANNULA. NO SOB NOTED.
[2021-08-19] MEDS: MORPHINE SULFATE 2 MG/ML SYR IVP PRN ×2 (02:54→09:15)
--- NOTE | 2021-08-19 03:00 | NUR ---
SLEEPING COMFORTABLY IN BED. RESPIRATION EVEN AND UNLABORED.
[2021-08-19 04:00] VITALS: BP 107/75
--- NOTE | 2021-08-19 07:00 | NUR ---
CONDITION REMAIN STABLE. WILL ENDORSE TO AM SHIFT NURSE FOR CONTINUITY OF CARE.
--- NOTE | 2021-08-19 07:05 | NUR ---
RECEIVED REPORT FROM WEFT STRAIGHTENER NURSE FOR CONTINUITY OF CARE. PT IN BED SITTING UP AT THIS TIME. RESPIRATIONS ARE EVEN AND UNLABORED ON ROOM AIR. NO SIGNS OF DISTRESS NOTED. PT IS ALERT AND ORIENTED X4 ABLE TO VERBALIZE NEEDS, ABLE TO FOLLOW COMMANDS. PT ABLE TO AMBULATE INDEPENDENTLY. SKIN IS WARM, DRY, AND INTACT. NO COMPLAINTS OF PAIN OR DISCOMFORT NOTED. CALL LIGHT WITHIN REACH. ALL SAFETY MEASURES IN PLACE. WILL CONTINUE TO MONITOR.
[2021-08-19 07:31] LABS: BASOPHILS # (AUTO) 0.1 K/uL (0.00-0.22); BASOPHILS % (AUTO) 1.6 % (0.0-2.0); EOSINOPHILS # (AUTO) 0.2 K/uL (0-0.4); EOSINOPHILS % (AUTO) 2.6 % (0.0-4.0); HEMATOCRIT 33.8 % (36-52); HEMOGLOBIN 10.4 g/dL (12.0-18.0); LYMPHOCYTES # (AUTO) 1.4 K/uL (2.0-11.5); LYMPHOCYTES % (AUTO) 19.9 % (20.5-51.1); MEAN CORPUSCULAR HEMOGLOBIN 22 pg (27-31); MEAN CORPUSCULAR HGB CONC 31 g/dL (33-37); MONOCYTES # (AUTO) 0.7 K/uL (0.8-1.0); MONOCYTES % (AUTO) 9.7 % (1.7-9.3); NEUTROPHILS # (AUTO) 4.7 K/uL (1.8-7.7); NEUTROPHILS % (AUTO) 66.2 % (42.2-75.2); PLATELET COUNT (AUTO) 248 K/uL (140-450); RED BLOOD CELL COUNT(AUTO) 4.77 MIL/uL (4.20-6.10); RED CELL DISTRIBUTION WIDTH 21.8 % (11.6-13.7); WHITE BLOOD COUNT (AUTO) 7.1 K/uL (4.8-10.8)
[2021-08-19 07:52] LABS: ALBUMIN 2.8 g/dL (3.4-5.0); ANION GAP 12.3 (8-16); CARBON DIOXIDE 29.7 mmol/L (21-32); CREATININE 1.8 mg/dL (0.6-1.3)
[2021-08-19 08:00] VITALS: BP 118/88
[2021-08-19] MEDS: FUROSEMIDE 20 MG/2 ML VIAL IVP SCH (09:12)
[2021-08-19] MEDS: ASPIRIN 81 MG TAB.CHEW PO SCH (09:18)
[2021-08-19] MEDS: ASCORBIC ACID 500 MG TAB PO SCH (09:19)
[2021-08-19] MEDS: PANTOPRAZOLE 40 MG TABEC PO SCH (09:19)
[2021-08-19] MEDS: LACTULOSE 20 GM/30 ML UDC PO SCH ×2 (09:19→13:32)
[2021-08-19] MEDS: carvediloL 3.125 MG TAB PO SCH (09:19)
--- NOTE | 2021-08-19 09:20 | NUR ---
ADMINISTERED ALL SCHEDULED MEDICATIONS. EDUCATED PT ON MEDS ADMINISTERED. PT VERBALIZED UNDERSTANDING. PT ALSO COMPLAINING OF PAIN. STATES PAIN IS 7/10. MORPHINE ADMINISTERED BY RN. WILL CONTINUE TO MONITOR.
[2021-08-19] MEDS: NICOTINE TRANSD SYS 14 MG/24 HR PATCH TD SCH (09:24)
--- NOTE | 2021-08-19 10:58 | NUR ---
PT CAME TO INFORM NURSE THAT PT REFUSED PHYSICAL THERAPY. PT TRIED 3X FOR PHYSICAL THERAPY, PT CONTINUES TO REFUSE. WILL CONTINUE TO MONITOR.
--- NOTE | 2021-08-19 11:12 | NUR ---
PHYSICAL THERAPY NOTE PATIENT REFUSED TREATMENT BECOMING UPSET AND USING FOWL LANGUAGE. MULTIPLE ATTEMPTS TO PARTICIPATE GIVEN. RN MADE AWARE. WILL CONTINUE WITH SCHEDULED TREATMENT ON FOLLOWING VISIT.
--- NOTE | 2021-08-19 11:46 | NUR ---
PHYSICAL THERAPY CO-SIGN The Physical Therapy Progress Notes documented by Cartridge Maker have been reviewed. Reviewed/Co-Signed by: Sharmaine River Documentation Done by: ABIGAIL RANGEL PTA
--- NOTE | 2021-08-19 12:06 | NUR ---
PT CALLED AND ASKED NURSE FOR MORPHINE. INFORMED PT THAT MORPHINE NOT DUE YET. PT UPSET, CURSING. RE-ORIENTED PT. WILL CONTINUE TO MONITOR.
--- NOTE | 2021-08-19 14:45 | NUR ---
INFORMED PT THAT DISCHARGE ORDER IN PLACE. PT STATES HE IS WAITING FOR BROTHER WHO IS GOING TO TAKE HIM HOME. PT STATES HIS BROTHER WILL BE HERE AROUND 1730.
[2021-08-19 15:37] VITALS: BP 118/88
--- NOTE | 2021-08-19 17:35 | NUR ---
WENT OVER DISCHARGE PAPERWORK WITH PT. ANSWERED ALL QUESTIONS. PT SIGNED ALL PAPERWORK. IV REMOVED. IV CATHETER INTACT. REMOVED WRIST BAND. ALL BELONGINGS TAKEN UPON DISCHARGE.
== END 2021-08-19 17:35 | disposition home or self-care (01) | DRG 279 ==
LOC: MED 15:55 → MTU 21:15 → OBSVTOIN 08-15 11:51
PROVIDERS: ADMIT Hospitalist; ATTEND Hospitalist
DX: K72.90 Hepatic failure, unspecified without coma (principal); N17.0 Acute kidney failure with tubular necrosis; G92.9 Unspecified toxic encephalopathy; I50.43 Acute on chronic combined systolic (congestive) and diastolic (congestive) heart failure; E43 Unspecified severe protein-calorie malnutrition; R18.8 Other ascites; I42.7 Cardiomyopathy due to drug and external agent; D63.8 Anemia in other chronic diseases classified elsewhere; I13.0 Hypertensive heart and chronic kidney disease with heart failure and stage 1 through stage 4 chronic kidney disease, or unspecified chronic kidney disease; I25.10 Atherosclerotic heart disease of native coronary artery without angina pectoris; D64.9 Anemia, unspecified; F15.10 Other stimulant abuse, uncomplicated; K21.9 Gastro-esophageal reflux disease without esophagitis; E55.9 Vitamin D deficiency, unspecified; E03.9 Hypothyroidism, unspecified; N18.32 Chronic kidney disease, stage 3b; R74.01 Elevation of levels of liver transaminase levels; I70.0 Atherosclerosis of aorta; E80.6 Other disorders of bilirubin metabolism; N28.1 Cyst of kidney, acquired; Z20.822 Contact with and (suspected) exposure to COVID-19
CPT/HCPCS: 99285; G0378; 36415; 71045; 80048; 80053; 83690; 83880; 84484; 85025; 87081; 93005; 94640; 97116; 97163-GP; 97530; J1940; J2060; J2270; Q0092; Q0162

== ENCOUNTER 2021-12-11 13:50 | Emergency (ER) | payer MEDICAID ==
[~2021-12-11] VITALS: Ht 15.2 cm; Wt 81.6 kg
[~2021-12-11 13:50] MED LIST changes: +BUME1TAB92 PO; -FURO-570 PO
[2021-12-11 13:59] VITALS: BP 125/78
--- NOTE | 2021-12-11 14:05 | NUR ---
PT AMBULATED TO BED 04, ASSISTED BY GELA.
--- NOTE | 2021-12-11 14:09 | NUR ---
45/M WALKED IN WITH CANE C/O NAUSEA AND ABD PAIN AND BLOATING ONSET 3 DAYS. DENIES TRAUMA OR INJ. NKA PMH: CHF
--- NOTE | 2021-12-11 14:25 | NUR ---
BLOOD DRAWN, EKG DONE
[2021-12-11 14:46] LABS: BASOPHILS # (AUTO) 0.2 K/uL (0.00-0.22); BASOPHILS % (AUTO) 2.7 % (0.0-2.0); EOSINOPHILS # (AUTO) 0.1 K/uL (0-0.4); EOSINOPHILS % (AUTO) 2.1 % (0.0-4.0); HEMOGLOBIN 9.6 g/dL (12.0-18.0); LYMPHOCYTES # (AUTO) 1.2 K/uL (2.0-11.5); LYMPHOCYTES % (AUTO) 18.4 % (20.5-51.1); MEAN CORPUSCULAR HEMOGLOBIN 21 pg (27-31); MEAN CORPUSCULAR HGB CONC 31 g/dL (33-37); MEAN CORPUSCULAR VOLUME 68.3 fL (80-94); MONOCYTES # (AUTO) 0.5 K/uL (0.8-1.0); MONOCYTES % (AUTO) 7.1 % (1.7-9.3); NEUTROPHILS # (AUTO) 4.7 K/uL (1.8-7.7); NEUTROPHILS % (AUTO) 69.7 % (42.2-75.2); PLATELET COUNT (AUTO) 189 K/uL (140-450); RED BLOOD CELL COUNT(AUTO) 4.54 MIL/uL (4.20-6.10); RED CELL DISTRIBUTION WIDTH 21.9 % (11.6-13.7); WHITE BLOOD COUNT (AUTO) 6.7 K/uL (4.8-10.8)
[2021-12-11] MEDS ORDERED: diazePAM 5 MG TAB PO ONE ×2 (14:55→19:40)
[2021-12-11 15:12] LABS: ALBUMIN 3.5 g/dL (3.4-5.0); ANION GAP 16.1 (8-16); POTASSIUM 4.1 mmol/L (3.5-5.1); TOTAL BILIRUBIN 1.5 mg/dL (0.0-1.0)
[2021-12-11 16:41] VITALS: BP 114/73
--- NOTE | 2021-12-11 19:21 | NUR ---
PT ABLE TO STAND UP TO USE THE URINAL, PACING IN THE ROOM WITH A STEADY GAIT, AND WHEN PT ASKED TO LAY DOWN- PT COOPERATIVE.
--- NOTE | 2021-12-11 19:31 | NUR ---
PT REFUSING IV START SAID THAT IT WOULD HURT AND WOULD RATHER LEAVE THE HOSPITAL THAN GET AN IV. ER MD AND SPONGE PACKER MADE AWARE.
--- NOTE | 2021-12-11 19:36 | NUR ---
MD COSTA AT BEDSIDE SPEAKING WITH PT ABOUT LEAVING AMA
[2021-12-11] MEDS ORDERED: ACETAMINOPHEN EXTRA STRENGTH 500 MG TAB PO ONE (19:40)
[2021-12-11 19:51] LABS: SALICYLATE 2.8 mg/dL (2.8-20.0)
[2021-12-11 19:53] LABS: ACETAMINOPHEN < 0.5 ug/ml (10-30)
--- NOTE | 2021-12-11 20:02 | NUR ---
Patient does not wish to proceed with medical care recommended by Luis Miguel CURRY. Patient given information related to possible complications, up to and including , which could occur as a result of leaving hospital at this time. Patient verbalizes understanding of risks involved leaving against medical advice. Patient has signed AMA form.
[2021-12-11 20:03] LABS: BARBITURATE, URINE NEGATIVE ng/ml (NEG <=200); BENZODIAZEPINE, URINE POSITIVE ng/mL (NEG <=200); CANNABINOID, URINE POSITIVE ng/mL (NEG <=50); COCAINE, URINE NEGATIVE ng/mL (NEG <=300); OPIATE, URINE NEGATIVE ng/mL (NEG <=2000); PHENCYCLIDINE SCREEN,URINE NEGATIVE ng/mL (NEG <=25)
== END 2021-12-11 20:02 | disposition left against medical advice (07) ==
LOC: MED 13:50
DX: I50.9 Heart failure, unspecified (principal); J44.9 Chronic obstructive pulmonary disease, unspecified; I10 Essential (primary) hypertension; E03.9 Hypothyroidism, unspecified; F19.10 Other psychoactive substance abuse, uncomplicated; F15.10 Other stimulant abuse, uncomplicated; F12.90 Cannabis use, unspecified, uncomplicated; Z79.899 Other long term (current) drug therapy
CPT/HCPCS: 36415; 71045; 80053; 80305; 81002; 83880; 84484; 85025; 93005; 99285; G0480; G0482

== ENCOUNTER 2022-01-17 15:14 | Emergency (ER) | payer MEDICAID ==
[~2022-01-17] VITALS: Ht 182.9 cm; Wt 90.7 kg
[2022-01-17 15:19] VITALS: BP 108/73
--- NOTE | 2022-01-17 15:26 | NUR ---
BIBA FROM PARKING LOT C/O LAC ON THE RIGHT FOOT. PER PT HE WAS WALKING WHEN HE FELT A "POP" ON HIS FOOT, NOTED ABRASIONS, PRESSURE DRESSING PLACED BY FIRE, PER EMS, APPROX 20 ML OF BLOOD LOSS NOTED. LAST TETANUS 7 YEARS AGO. CMS INTACT, FIRE SPRINKLER APPARATUS INSPECTOR LESS THAN 3 SECONDS, UNABLE TO PALPATE PEDAL PULSES PRESSURE DRESSING IS IN PLACE. NKA PMH: HEP B+, CHF
--- NOTE | 2022-01-17 15:34 | NUR ---
DR GUADARRAMA AT BEDSIDE FOR EVAL
--- NOTE | 2022-01-17 16:03 | NUR ---
pt r foot irrigated
--- NOTE | 2022-01-17 16:50 | NUR ---
Patient discharged with v/s stable. Written and verbal after care instructions given and explained. Patient verbalized understanding. Wheel Chair Assisted with to car. All questions addressed prior to discharge. Advised to follow up with PMD. WITH HOMELESS PACKET AND FOOD, PT REFUSED SOCKS
== END 2022-01-17 16:50 | disposition home or self-care (01) ==
LOC: MED 15:14
DX: I83.891 Varicose veins of right lower extremity with other complications (principal); I50.9 Heart failure, unspecified
CPT/HCPCS: 99283